=== PATIENT | male | born 1940 | race Caucasian/White ===

== ENCOUNTER 2018-05-11 08:25 | Inpatient (IN) | payer MEDICARE, MEDICAID ==
[2018-05-11] MEDS ORDERED: Dextrose 50% Syringe 50 ML* 25 GM/50 ML SYRINGE IV PUSH ONE (09:08)
[2018-05-11 09:14] LABS: ABS Basophils 0 10^3/ul (0-0.2); ABS Eosinophils 0.1 10^3/ul (0-0.6); ABS Lymphocytes 0.5 10^3/ul (1.0-4.8); ABS Monocytes 0.7 10^3/ul (0-0.8); ABS Neutrophils 9.4 10^3/ul (1.5-7.7); ABS Nucleated RBC 0.1 10^3/ul; Eosinophil % 0.5 % (0-6); Hematocrit 55 % (42-52); Hemoglobin 18.6 g/dl (14.0-18.0); Lymphocyte % 4.9 % (25-47); Mean Corpuscular HGB Conc 34 g/dl (31-36); Mean Corpuscular Hemoglobin 30 pg (27-31); Mean Corpuscular Volume 89 fL (80-94); Mean Platelet Volume 7.2 fL (7.4-10.4); Nucleated Red Blood Cells % 0.7; Platelet Count 165 10^3/ul (150-450); Red Blood Count 6.24 10^6/ul (4.00-5.40); Red Cell Distribution Width 13 % (10.5-15); White Blood Count 10.7 10^3/ul (3.5-10.8)
[2018-05-11] MEDS ORDERED: Labetalol IV* 5 MG/ML 20 ML VIAL IV PUSH ONE (09:19)
[2018-05-11] MEDS ORDERED: Aspirin 81 mg CHEW TAB* 81 MG TAB.CHEW PO ONE (09:22)
--- NOTE | 2018-05-11 09:25 | ED ---
Syncope/Near Syncope - HPI Summary HPI Summary: Patient presents via ambulance with syncope of unknown origin prior to arrival. He reports he went to stand up on the side of his bed and had some lightheadedness - thinks he fell over/"passed out" but doesn't recall any details - unsure if he hit his head. Woke up in his bed. Denies headache, visual change, neck pain or stiffness, chest pain, shortness of breath, cough, abdominal pain, nausea/vomiting/diarrhea, back pain, extremity pain/numbness/ tingling/weakness, urinary sx or back pain. He IDDM - per EMS, records of AM blood glucose is 40-60 - this was low again this morning in 50's - received sugar replacement of some sort prior to arrival - glucose still low at 61. Unable to report if he has felt lightheaded in the past with low blood glucose levels. Patient also has hypertension. Does not recall meds he takes but states he typically takes his meds in the morning and has not taken them today yet. Denies high cholesterol or medication for this as well as thyroid issues. Furthermore he denies history of CVA, [place], arrhythmia. Denies recent illness and feels fine at this time. H/o prostate cancer. Lives w/ sister, Keren, who is on her way - she called ambulance. - History Of Current Complaint Chief Complaint: EDWeakness Time Seen by Provider: 05/11/18 08:46 Hx Obtained From: Patient - Allergies/Home Medications Allergies/Adverse Reactions: Allergies Allergy/AdvReac Type Severity Reaction Status Date / Time citalopram [From Celexa] Allergy Unknown Verified 05/11/18 08:37 Reaction Details Home Medications: Home Medications Basaglar Kwikpen U-100 60 units SUBCUT SEE INSTRUCTIONS 05/11/18 [History Confirmed 05/11/18] Lisinopril 40 mg PO DAILY 05/11/18 [History Confirmed 05/11/18] Solifenacin Succinate [Vesicare] 5 mg PO DAILY 05/11/18 [History Confirmed 05/11] PMH/Surg Hx/FS Hx/Imm Hx Previously Healthy: No - pt reports syncope 4 days ago w/o investigation Endocrine/Hematology History: Reports: Hx Diabetes - IDDM Denies: Hx Anticoagulant Therapy - pt denies Cardiovascular History: Reports: Hx Coronary Artery Disease - likely per Hx, pt denies, Hx Hypercholesterolemia, Hx Hypertension Denies: Hx Atrial Fibrillation, Hx Congestive Heart Failure, Hx Valvular Heart Disease Respiratory History: Denies: Hx Asthma, Hx Chronic Obstructive Pulmonary Disease (COPD), Hx Pulmonary Edema, Hx Pulmonary Embolism GI History: Reports: Other GI Disorders - colitis History: Reports: Other Problems/Disorders - prostate ca Psychiatric History: Reports: Hx Anxiety, Hx Depression - Cancer History Cancer Type, Location and Year: prostate carcinoma - Surgical History Surgery Procedure, Year, and Place: age 22, polyp removed from coccyx Infectious Disease History: No Infectious Disease History: Denies: Traveled Outside the [place] in Last 30 Days - Social History Lives: With Family - Keren ghosh Alcohol Use: None Hx Substance Use: No Substance Use Type: Reports: None Hx Tobacco Use: Yes - denies current smoking Smoking Status (MU): Former Smoker Type: Pipe Amount Used/How Often: 50yr Have You Smoked in the Last Year: Yes Review of Systems Constitutional: Negative Eyes: Negative ENT: Negative Cardiovascular: Negative Respiratory: Negative Gastrointestinal: Negative Genitourinary: Negative Musculoskeletal: Negative Skin: Negative Neurological: Negative Psychological: Normal All Other Systems Reviewed And Are Negative: Yes Physical Exam Triage Information Reviewed: Yes Vital Signs On Initial Exam: Initial Vitals Temp Pulse Resp BP Pulse Ox 97.7 F 92 16 216/124 96 05/11/18 08:26 05/11/18 08:26 05/11/18 08:26 05/11/18 08:26 05/11/18 08:26 Vital Signs Reviewed: Yes Appearance: Positive: No Pain Distress, Obese Skin: Positive: Warm, Skin Color Reflects Adequate Perfusion, Dry - LE's w/ diffuse scaling B/L knees to toes w/ thick toe nails - superficial wounds/skin breakdown of feet B/L Lt > Rt - wet but no significantly active dranainge - NTTP ; dorsal pedal edema; Hands are hyperpigmented w/ what appears to be contusions - no skin breakdown - dorsal edema Head/Face: Positive: Normal Head/Face Inspection Eyes: Positive: Normal, EOMI, ANTHONY - no photophobia, Conjunctiva Clear. Negative: Conjunctiva Inflammed, Discharge ENT: Positive: Normal ENT inspection, Hearing grossly normal, Pharynx normal - mucosa dry, TMs normal, Uvula midline. Negative: Nasal congestion, Nasal drainage, Tonsillar swelling, Tonsillar exudate, Trismus, Muffled voice, Hoarse voice, Sinus tenderness Neck: Positive: Supple, Nontender, No Lymphadenopathy Respiratory/Lung Sounds: Positive: Clear to Auscultation, Breath Sounds Present. Negative: Rales, Rhonchi, Wheezes Cardiovascular: Positive: Pulses are Symmetrical in both Upper and Lower Extremities, Leg Edema Left - dorsal feet B/L; (-) Sahil's B/L, Leg Edema Right , S1, S2 - occasional irregular beat. Negative: Murmur, Rub Abdomen Description: Positive: Nontender, No Organomegaly, Soft Bowel Sounds: Positive: Present Musculoskeletal: Positive: Normal, Strength/ROM Intact Neurological: Positive: Sensory/Motor Intact, Alert, Oriented to Person Place, Time - knows time mostly but not today's date or day - identifies month, year, holiday, president, location; slow to respond (unsure if this is baseline or new onset), CN Intact II-III, Facial Symmetry, Speech Normal. Negative: Pronator Drift Present Psychiatric: Positive: Other - flat, cooperative - [place] Coma Scale Best Eye Response: 4 - Spontaneous Best Motor Response: 6 - Obeys Commands Best Verbal Response: 5 - Oriented Coma Scale Total: 15 Diagnostics - Vital Signs Vital Signs Temp Pulse Resp BP Pulse Ox 05/11/18 09:08 206/113 05/11/18 09:00 96 16 95 05/11/18 08:53 96 05/11/18 08:37 89 4 175/122 95 05/11/18 08:26 97.7 F 92 16 216/124 96 - Laboratory Lab Results: Lab Results 05/11/18 05/11/18 Range/Units 08:47 09:01 WBC 10.7 (3.5-10.8) 10^3/ul RBC 6.24 H (4.00-5.40) 10^6/ul Hgb 18.6 H (14.0-18.0) g/dl Hct 55 H (42-52) % MCV 89 (80-94) fL MCH 30 (27-31) pg MCHC 34 (31-36) g/dl RDW 13 (10.5-15) % Plt Count 165 (150-450) 10^3/ul MPV 7.2 L (7.4-10.4) fL Neut % (Auto) 87.8 H (38-83) % Lymph % (Auto) 4.9 L (25-47) % [place] % (Auto) 6.6 (0-7) % Eos % (Auto) 0.5 (0-6) % Baso % (Auto) 0.2 (0-2) % Absolute Neuts (auto) 9.4 H (1.5-7.7) 10^3/ul Absolute Lymphs (auto) 0.5 L (1.0-4.8) 10^3/ul Absolute Monos (auto) 0.7 (0-0.8) 10^3/ul Absolute Eos (auto) 0.1 (0-0.6) 10^3/ul Absolute Basos (auto) 0 (0-0.2) 10^3/ul Absolute Nucleated RBC 0.1 10^3/ul Nucleated RBC % 0.7 POC Glucose (mg/dL) 61 L (70-100) mg/dL Result Diagrams: 05/11/18 09:01 05/11/18 09:01 Lab Statement: Any lab studies that have been ordered have been reviewed, and results considered in the medical decision making process. Re-Evaluation - Re-Evaluation First Eval Change: Improved - HR and BP improved - mentation same Course/Dx Course Of Treatment: IDDM, HTN 78 y.o. male presents w/ syncope of unknown origin this morning prior to arrival. (SEE HPI for details). ECG: NSR, no ST elevations, but has new RBBB and possibly new Q waves. Discussed w/ Dr. Whitney - in the absence of CP, will avoid nitro but d/t hypertensive urgency will order labetolol 20mg IV and monitor. Will also order ASA pending brain CT. UPDATE: BRAIN CT w/o acute hemorrhage - nurse aware may give ASA. LABS: RBC 6.24, hemaglobin 18.6, hematocrit 55 (Hemachromatosis?, PCV?), MPV 7.2, neutrophils 87.8, lymphs 4.9, absolute neuts 9.4, absolute lymphs are 0.5, d-dimer 346, creatinine 1.33, bun 20, GFR 52, glucose 61 (POC) up to 67 (serum) - will repeat 15 mins after dextrose, mag 1.6, alkaline phosphatase 117. Troponin 0.05 (has been 0.06 in 2016 x 2 - baseline vs. acute) UPDATE: glucose improved - 140's - mentation same. Orthostatic BP's: + 20 point drop w/ change in position and tachycardia - will administer 500mL IV fluids and f/u as needed based on further labs, etc. CXR: No acute findings. With elevated D-dimer, tachycardia, dry appearance, elevated H&H, h/o CA, will r/o PE. Clincally appears dry but also may have CHF as he has DM, HTN and pedal edema. Creat elevated. UPDATE: BNP 458 (no previous for comparison - CHF vs. chronic cardiac damage). UPDATE: Upon sister arriving, she reports pt had syncope 4 days ago as well but they decided not to call for medical help at that time. She is concerned about his sx as this is not normal for him (sx: dizziness, confusion) . Pt's BP and HR improved s/p labetalol. Improved/stable at time of transition of care. - Diagnoses Provider Diagnoses: Syncope, Hypoglycemia, Hypertensive urgency, Elevated troponin, Abnormal ECG Discharge - Sign-Out/Discharge Documenting (check all that apply): Patient Departure - Discharge Plan Condition: Improved Disposition: ADMITTED TO [facility] - Billing Disposition and Condition Condition: IMPROVED Disposition: Admitted to [facility]
[2018-05-11 09:33] LABS: INR 0.97 (0.77-1.02)
[2018-05-11 09:37] LABS: EGFR Non-African American 52.3 (>60)
[2018-05-11] MEDS ORDERED: NS 0.9% 500 ML* 500 ML IV ONE (09:37)
[2018-05-11 09:51] LABS: Urine Appearance Clear; Urine Blood Negative (Negative); Urine Color Yellow; Urine Ketones Negative (Negative); Urine Protein 1+(30 mg/dL) (Negative); Urine Red Blood Cell 1+(3-5/hpf) (Absent); Urine Specific Gravity 1.014 (1.010-1.030); Urine Urobilinogen Negative (Negative); Urine White Blood Cell Absent (Absent)
[2018-05-11] MEDS ORDERED: Iodixanol* (CONTRAST) 320 MG/ML 100 ML SDV IV ONE (10:39)
[2018-05-11] MEDS ORDERED: Dextrose 50% Syringe 50 ML* 25 GM/50 ML SYRINGE IV PUSH PRN (11:21)
[2018-05-11] MEDS ORDERED: Acetaminophen TAB* 325 MG PO PRN (11:21)
[2018-05-11] MEDS ORDERED: hydrALAZINE IV* 20 MG/ML VIAL IV SLOW PU PRN ×2 (11:21→11:46)
[2018-05-11] MEDS ORDERED: Ondansetron INJ* 2 MG/ML VIAL IV PRN (11:21)
[2018-05-11] MEDS ORDERED: NS 0.9% 1000 ML* 1,000 ML IV SCH (11:30)
[2018-05-11] MEDS ORDERED: Magnesium Sulfate 2 GM IV* 2 GM/50 ML BAG IVPB ONE (11:48)
[2018-05-11] MEDS: Insulin LISPRO* 1 UNITS UNIT SUBCUT SCH ×2 (13:55→17:57)
[2018-05-11] MEDS: Heparin VIAL(*) 5000 UNITS/ML VIAL (FIVE THOUSAND) SUBCUT SCH ×2 (14:01→21:21)
[2018-05-11 15:59] LABS: EGFR Non-African American 50.1 (>60)
--- NOTE | 2018-05-11 16:33 | ECHO ---
Patient: BRETT PATRICIO [facility] Rec#: [id number] : 1940 Date: 05/11/2018 Age: 78y Height: 170 cm / 66.9 in Weight: 95 kg / 209.4 lbs Sex: M BSA: 2.06 Room#: ED 18 Admit Date#: 05/11/2018 Type: Inpatient Referring: Merrill Lam NP Reading: Kayla Hernandez MD Brass Plater: Abigail Ivy RDCS,RDMS CC: Swati Hagen MD Transthoracic Echocardiogram Indication: SYNCOPE BP: 162/98 HR: 87 Rhythm: NSR with PVCs Findings History: DM, HTN, HLD Technical Comments: The study quality is fair. Left Ventricle: The left ventricular chamber size is normal. Mild to moderate concentric left ventricular hypertrophy is observed. 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 The estimated ejection fraction is 50-55%. Abnormal left ventricular diastolic filling is observed, consistent with impaired relaxation. Left Atrium: The left atrium is mildly dilated. Right Ventricle: The right ventricular chamber size and systolic function are within normal limits. Right Atrium: The right atrium is mildly dilated. Aortic Valve: The aortic valve is trileaflet. The aortic valve leaflets are mildly thickened. There is no evidence of aortic regurgitation. There is no evidence of aortic stenosis. Mitral Valve: There is mitral annular calcification. The mitral valve leaflets are mildly thickened. There is a trace of mitral regurgitation. There is no evidence of mitral stenosis. Tricuspid Valve: The tricuspid valve leaflets are normal. There is no evidence of tricuspid valve regurgitation. Unable to estimate the right ventricular systolic pressure. Pulmonic Valve: There is no evidence of pulmonic valve thickening. There is no evidence of pulmonic regurgitation. Pericardium: There is no significant pericardial effusion. Aorta: The aortic root appears normal. The ascending aorta is not well visualized. There is no dilatation of the aortic arch. Pulmonary Artery: The main pulmonary artery is not well visualized. Venous: The inferior vena cava appears normal in size. Conclusions Mild to moderate concentric left ventricular hypertrophy is observed. 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 The estimated ejection fraction is 50-55%. Abnormal left ventricular diastolic filling is observed, consistent with impaired relaxation. The right ventricular chamber size and systolic function are within normal limits. The aortic valve leaflets are mildly thickened with normal function. There is a trace of mitral regurgitation. Compared with prior echo report of 10/13/15 EF is stable, prior study did not visualize inferior wall well, akinisis in the inferior posterior region is newly appreciated. Measurements Name Value Normal Range RVIDd (AP) 2D 3 cm (0.9 - 2.6) RAd ISD 4CH 5.1 cm (3.4 - 4.9) IVSd (2D) 1.4 cm (0.6 - 1) LVPWd (2D) 1 cm (0.6 - 1) LVIDd (2D) 5 cm (3.6 - 5.4) LVIDs (2D) 4.1 cm - LV FS (2D) 18 % (25 - 45) Aortic Annulus 2 cm (1.4 - 2.6) Ao root diameter (2D) 3.1 cm (2.1 - 3.5) Aortic arch 3.4 cm (1.8 - 3.4) LA dimension (AP) 2D 4.1 cm (2.3 - 3.8) LAd ISD 4CH 5 cm (2.9 - 5.3) LA ISD 4CH W 4.6 cm (2.5 - 4.5) Name Value Normal Range LA ESV BP (A/L) index 33 ml/m2 - Name Value Normal Range MV E-wave Vmax 0.5 m/sec - MV deceleration time 63 msec - MV A-wave Vmax 1.1 m/sec - MV E:A ratio 0.5 ratio - LV septal e' Vmax 0.03 m/sec - LV lateral e' Vmax 0.05 m/sec - LV E:e' septal ratio 16 ratio - LV E:e' lateral ratio 10 ratio - Name Value Normal Range AV Vmax 1 m/sec - AV VTI 19 cm - AV peak gradient 4 mmHg - AV mean gradient 2 mmHg - LVOT diameter 2 cm - LVOT Vmax 0.6 m/sec - LVOT VTI 10 cm - LVOT peak gradient 1 mmHg - LVOT mean gradient 0.4 mmHg - ANAHI (continuity Vmax) 1.9 cm2 - ANAHI (continuity VTI) 1.6 cm2 - NETO Vmax 0.5 m/sec - Name Value Normal Range MV Vmax 1.2 m/sec - MV VTI 24 cm - MV peak gradient 6 mmHg - MV mean gradient 3 mmHg - MV PHT 47 msec - MVA (PHT) 4.7 cm2 - MVA (continuity VTI) 1.3 cm2 - Name Value Normal Range PV Vmax 0.6 m/sec - PV peak gradient 1 mmHg -
[2018-05-11] MEDS: Ammonium Lactate 12% 1 APPLIC TUBE TOPICAL SCH ×2 (17:57→21:25)
[2018-05-11] MEDS: buPROPion SR TAB.SR* 100 MG PO SCH (21:19)
[2018-05-11] MEDS: Docusate CAP* 100 MG PO SCH (21:19)
[2018-05-11] MEDS: Senna TAB PO PRN (21:19)
[2018-05-12] MEDS: Heparin VIAL(*) 5000 UNITS/ML VIAL (FIVE THOUSAND) SUBCUT SCH ×3 (05:30→22:23)
[2018-05-12 06:15] LABS: EGFR Non-African American 53.7 (>60)
--- NOTE | 2018-05-12 08:36 | HP ---
CC: Dr. Swati Vargas; Dr. Adkins* HISTORY AND PHYSICAL: DATE OF ADMISSION: 05/11/18 PRIMARY CARE PROVIDER: Dr. Swati Vargas. ATTENDING PHYSICIAN WHILE IN THE HOSPITAL: Dr. Kathi Navarro* (report dictated by Merrill Lam NP). CHIEF COMPLAINT: Syncope. HISTORY OF PRESENT ILLNESS: Mr. Sanchez is a 78-year-old male patient, who carries a history of diabetes, in addition to this also carries a history of hypertension, hyperlipidemia, CAD. He had a history of a low EF and irregular stress test in 2011. His last documented EF 2 years ago was preserved at 50% to 55%. He has a history of prostate cancer. He is coming into the ER today. He has had 2 episodes of having when he first gets up in the morning where he has been fainting. He also noted that in the morning that his sugars have been running low and sometimes into the 60s. When discussing with him what happened today in this episode, he says that last thing he remembers that he was trying to get up to go get ready for the day and go to the bathroom, again the sister who lives with him said that he had gotten up once already earlier in the morning, but then around 6:30 to 7 o'clock this morning he got up again and she was able to see that he was trying to stand up trying to get out of bed and then he rolled out of bed and he had fainted. There were no reports of incontinence or shaking or myoclonic type movements. There were no reports of chest pain prior to or after the event. When the patient had come to, the sister says he was not out very long, he was delirious, he was upset that he had fallen, but when asking the patient, he says that he recognized the sister and he knew that he was in his bedroom and he says he does not think he was out very long. They did note that his sugar was low this morning. There was concern because of the episode and that he had a similar episode about a week prior, again with no prodrome type symptoms, blood glucose when EMS arrived was 51. There have been no recent changes in his medications and the sister says that he has excellent appetite. She was concerned because he had fallen again and had called 911. When he came here, his blood pressure was significantly elevated. It was in the 200 systolic over 120 range. He was given beta-belkis , labetalol and his blood pressure did come down to range in the 160s. He denied any again chest pain, shortness of breath. There has been no recent vomiting, diarrhea. No fevers, no chills. He came into the ED, was evaluated. There was concern because of the syncope and we were asked to evaluate for admission. PAST MEDICAL HISTORY: Significant for: 1. Diabetes. 2. Hypertension. 3. Hyperlipidemia. 4. Question of CAD. He did have an irregular stress test 6 years ago when he had a heart cath. 5. Questionable history of cardiomyopathy. He had a low EF based on stress test 6 years ago, but most recent EF 2 years ago was 50% to 55%. 6. He has had a history of prostate cancer. PAST SURGICAL HISTORY: He denied. HOME MEDICATIONS: Include: 1. Lantus. He is actually taking 20 units at bedtime, 60 units in the morning. 2. Bupropion 100 mg p.o. b.i.d. 3. VESIcare 5 mg a day. 4. Toprol-XL 50 mg daily. 5. Lisinopril 40 mg daily. ALLERGIES TO MEDICATIONS: Include CELEXA. FAMILY HISTORY: Mother at the age of 98 of old age. Father had an UT in his 60s. SOCIAL HISTORY: He rarely drinks alcohol. He used to smoke a pipe on a daily basis, but he no longer smokes. Surrogate decision maker is his sister, Keren. REVIEW OF SYSTEMS: There is no documented fever. He denied having any significant weight change. There is no double vision. He denies having any ear discharge. There was no rhinorrhea. There is no sore throat. No thyroid enlargement. Denies having any chest pain. There was no orthopnea. There was no nocturnal dyspnea. He denies having any abdominal pain. No vomiting. No dysuria, no frequency. No seizure. There was a loss of conscious. Review of 14 systems was completed, all others negative. PHYSICAL EXAMINATION GENERAL: At this time, Mr. Sanchez is a 78-year-old male patient. He is sitting in the ED stretcher. He does not appear to be in any acute distress. He appears to be well nourished and well developed. VITAL SIGNS: Blood pressure now was 162/98 with a pulse of 107, respirations were 20, his O2 saturation 96% on room air, temperature 97.7. When he presented , blood pressure was 216/124. HEENT: Head: Atraumatic and normocephalic. Eyes: EOMs are intact. Sclerae anicteric and not pale. Throat: Oral mucosa appears to be dry. No oropharyngeal erythema. NECK: Supple. LUNGS: Clear to auscultation bilaterally. There were no wheezes, rales, or rhonchi. HEART: Sounds S1, S2. He had a regular rate and rhythm. There were no murmurs , rubs, or gallops. ABDOMEN: Soft. It was flat. It was nontender. Bowel sounds were present. EXTREMITIES: He does have abrasions noted to the left knee and left heel. He has scaling of the skin bilaterally. He has got 2+ pedal edema. He had 5/5 strength. Pulses were 2+. NEUROLOGIC: He is awake. He is alert. He is oriented x3. His tongue is midline. Physical Therapy Manager were equal. He had no gross focal deficits. SKIN: Again grossly intact with exception he has abrasions noted particularly to the left lower extremity to the knee and to the pretibial area. DIAGNOSTIC STUDIES/LAB DATA: WBC of 10.7, RBC of 6.24, hemoglobin of 18.6, hematocrit of 55, platelet count of 165. INR of 0.97, PTT of 32.6, D-dimer 346. His sodium was 140; potassium 3.6; chloride of 108; bicarb 23; BUN 20; creatinine of 1.33, which is right near his baseline; glucose 67, now it is 142 ; lactic 1.0; calcium 9.2. His mag was 1.6. The total bili 0.7, AST 20, ALT 14 , alk phos 117. Troponin 0.05, which is right near his baseline. BNP of 458. TSH was normal. Urine showed 1+ protein, 1+ rbc's, 2+ glucose. Toxicology negative. He had a brain CT obtained today, which showed central and cortical atrophy. No intracranial mass or hemorrhage was noted. He had an EKG obtained today, which does show a new right bundle branch block, J - point elevation was noted. He had some ST depression in V2. Previous EKGs, he does have a left bundle branch block. The right bundle branch block is now new. He had a chest x-ray obtained today, which showed no active cardiopulmonary disease. Old medical records were reviewed. Again, last EF 50% to 55%. ASSESSMENT AND PLAN: Mr. Sanchez is a 78-year-old male patient coming into the ED today with a syncopal episode. We were asked to evaluate for admission. He will be admitted under observation status for: 1. Syncope. Etiology is unclear. I do note that with acute position change his blood pressure does drop about 20 points and his heart rate does come up. He could be slightly orthostatic, although his blood pressure is quite high. My plan is to certainly repeat the orthostatics upstairs as he did get fluids down here in the ER. I will go ahead and get a CTA of the chest that is pending given the elevated troponin and D-dimer. We will place him on telemetry. We will check an echo and we will continue to follow. Question if he did have possibly a seizure related to hypoglycemia or if the hypoglycemia contributed to the syncope. So, at this point, I have cut back on the patient' s p.m. Lantus, I have discontinued it for the time being. 2. Diabetes. Again, he has had low sugars recently, so we have cut the 20 units of Lantus at night. We will just keep him on 60 while he is here and we will follow. 3. Hypertension. Again, when he came in, he was not well controlled, but he may have not taken his blood pressure meds this morning. We will need to monitor this. We may need to consider adding an agent at night, but his blood pressure is now better in range at 160s/70s. 4. Hyperlipidemia. Continue statin therapy. 5. Question of coronary artery disease. I am going to get an echo to see if the EF is still preserved. He will need to follow up with Cardiology, possibly a stress test at some point. We will cycle his troponins and we will continue to follow. 6. Question of cardiomyopathy. Again, last EF was preserved. Again, he will need followup with possible Cardiology. 7. Elevated H and H. I am concerned for polycythemia. I have asked Dr. Adkins to evaluate. 8. History of prostate cancer. Follow up with PCP and Dr. Mosley. 9. Code status: Full code. 10. Fluids, electrolytes, and nutrition: He can have a consistent carb diet. TIME SPENT: Time spent on the admission was 60 minutes, greater than half the time was spent [id number] with the patient obtaining my history and physical, other half of the time was spent going over the plan of care with the patient and implementing plan of care. I did discuss the plan of care with my attending, Dr. Navarro; she is in agreement. MERRILL LAM, ROLAND [id number]/CPS #: [id number] LINDA
[2018-05-12] MEDS: CMC:Solifenacin(NF) 5 MG TAB PO SCH (08:48)
[2018-05-12] MEDS: Docusate CAP* 100 MG PO SCH ×2 (08:48→22:21)
[2018-05-12] MEDS: buPROPion SR TAB.SR* 100 MG PO SCH ×2 (08:48→22:21)
[2018-05-12] MEDS: Lisinopril TAB* 10 MG PO SCH (08:48)
[2018-05-12] MEDS: Aspirin EC TAB* 81 MG TAB.EC PO SCH (08:48)
[2018-05-12] MEDS: Metoprolol Succinate XL TAB* 50 MG PO SCH (08:48)
[2018-05-12] MEDS: Insulin LISPRO* 1 UNITS UNIT SUBCUT SCH ×3 (08:49→16:59)
[2018-05-12] MEDS ORDERED: Insulin GLARGINE(*) 1 UNITS UNIT SUBCUT SCH (09:00)
[2018-05-12] MEDS: Ammonium Lactate 12% 1 APPLIC TUBE TOPICAL SCH ×2 (10:25→22:24)
--- NOTE | 2018-05-12 11:41 | PN ---
Subjective Date of Service: 05/12/18 Interval History: Mr. Sanchez denies complaint and reports feeling well today. He is aware of the plan for pacemaker tomorrow and has no questions or concerns. He denies chest pain, SOB, nausea, or abdominal pain. He has been up ambulating in his room without lightheadedness or dizziness. Objective Active Medications: Acetaminophen (Tylenol Tab*) 650 mg PO Q4H PRN Ammonium Lactate (Lac-Hydrin 12 %) 1 applic TOPICAL BID [facility] Aspirin (Aspirin Ec Tab*) 81 mg PO DAILY [facility] Bupropion HCl (Wellbutrin Sr Tab*) 100 mg PO BID [facility] Dextrose (D50w Syringe 50 Ml*) 12.5 gm IV PUSH .FOR FS < 60 - SS PRN Docusate Sodium (Colace Cap*) 100 mg PO BID [facility] Heparin Sodium (Porcine) (Heparin Vial(*)) 5,000 units SUBCUT Q8HR [facility] Hydralazine HCl (Apresoline Iv*) 5 mg IV SLOW PU Q6H PRN Sodium Chloride (Ns 0.9% 1000 Ml*) 1,000 mls @ 100 mls/hr IV PER RATE [facility] Insulin Glargine (Lantus(*)) 60 units SUBCUT DAILY [facility] Insulin Human Lispro (Humalog*) 0 units SUBCUT AC [facility]; Protocol Lisinopril (Prinivil Tab*) 40 mg PO DAILY [facility] Metoprolol Succinate (Toprol Xl Tab*) 50 mg PO DAILY [facility] Ondansetron HCl (Zofran Inj*) 4 mg IV Q6H PRN Senna (Senokot Tab*) 2 tab PO BEDTIME PRN Solifenacin (Vesicare(Nf)) 5 mg PO DAILY [facility] Vital Signs: Temp Pulse Resp BP Pulse Ox 98.7 F 79 18 152/84 97 05/12/18 07:48 05/12/18 07:48 05/12/18 07:48 05/12/18 07:48 05/12/18 07:48 Oxygen Devices in Use Now: None Appearance: Male lying in bed in NAD Eyes: No Scleral Icterus Ears/Nose/Mouth/Throat: Mucous Membranes Moist Neck: Trachea Midline Respiratory: Symmetrical Chest Expansion and Respiratory Effort, Clear to Auscultation Cardiovascular: NL Sounds; No Murmurs; No JVD, No Edema Abdominal: NL Sounds; No Tenderness; No Distention Extremities: No Edema Skin: No Rash or Ulcers Neurological: Alert and Oriented x 3, NL Muscle Strength and Tone Nutrition: Taking PO's Result Diagrams: 05/11/18 09:01 05/12/18 05:29 Additional Lab and Data: . Assess/Plan/Problems-Billing Assessment: Mr. Sanchez is a 78 yo male with a PMH of questionable CAD and cardiomyopathy, DM, HTN who was admitted on 05/11/18 with syncope on getting out of bed and relative hypoglycemia. - Patient Problems (1) Syncope Comment: - Mildly orthostatic in the ED, resolved with IV fluids. - Ddimer elevated but CTA chest negative. - Question if related to low BG - Appreciate consultation from cardiology, concern for EKG with flip from left to right bundle branch block and elevated troponins. Echo shows a new akinesis in the inferior posterior region. Plan for pacemaker and then later follow up with stress test. - Question if hypoglycemia contributed to his symptoms (2) CAD (coronary artery disease) Comment: - Dr. Hernandez had been concerned about CAD and recommended cardiac cath some time ago, patient did not follow up - Echo confirms a previous CA. - Continue aspirin, lisinopril, and metoprolol. - Will need ischemic work up when recovered from pacemaker placement (3) Elevated hemoglobin Comment: - Appreciate consult from Dr. Adkins who ordered erythropoietin and Jak2 mutation (4) HTN (hypertension) Comment: - SBP 150s. - Continue metoprolol and lisinopril. (5) Hyperlipidemia Comment: - Resume lovastatin at home. (6) Type II diabetes mellitus Comment: - BG 120s - Continue AM lantus, PM long acting insulin held due concern for hypoglycemia causing syncope/seizure (7) Depression Comment: - Continue bupropion. (8) DVT prophylaxis Comment: - SQ heparin (9) Full code status Comment: Status and Disposition: OBV. Anticipate discharge to home when medically stable.
--- NOTE | 2018-05-12 13:43 | PN ---
Subjective Date of Service: 05/12/18 - CC: syncope Interval History: The patient walked to bathroom, not dizzy this AM, no fall or syncope. Medications Active Medications: Acetaminophen (Tylenol Tab*) 650 mg PO Q4H PRN PRN Reason: FEVER/PAIN Ammonium Lactate (Lac-Hydrin 12 %) 1 applic TOPICAL BID [facility] Last Admin: 05/12/18 10:25 Dose: 1 applic Aspirin (Aspirin Ec Tab*) 81 mg PO DAILY [facility] Last Admin: 05/12/18 08:48 Dose: 81 mg Bupropion HCl (Wellbutrin Sr Tab*) 100 mg PO BID [facility] Last Admin: 05/12/18 08:48 Dose: 100 mg Dextrose (D50w Syringe 50 Ml*) 12.5 gm IV PUSH .FOR FS < 60 - SS PRN PRN Reason: FS < 60 Docusate Sodium (Colace Cap*) 100 mg PO BID [facility] Last Admin: 05/12/18 08:48 Dose: 100 mg Heparin Sodium (Porcine) (Heparin Vial(*)) 5,000 units SUBCUT Q8HR [facility] Last Admin: 05/12/18 05:30 Dose: 5,000 units Hydralazine HCl (Apresoline Iv*) 5 mg IV SLOW PU Q6H PRN PRN Reason: BLOOD PRESSURE Sodium Chloride (Ns 0.9% 1000 Ml*) 1,000 mls @ 100 mls/hr IV PER RATE [facility] Last Admin: 05/11/18 13:55 Dose: 100 mls/hr Cefazolin Sodium/Dextrose (Kefzol 2 Gm Premix In Ors(*)) 2 gm in 50 mls @ 100 mls/hr IVPB ONCE ONE Stop: 05/13/18 08:29 Sodium Chloride (Ns 0.9% 1000 Ml*) 1,000 mls @ 75 mls/hr IV PER RATE [facility] Insulin Glargine (Lantus(*)) 60 units SUBCUT DAILY [facility] Last Admin: 05/12/18 08:48 Dose: 60 units Insulin Human Lispro (Humalog*) 0 units SUBCUT AC [facility]; Protocol Last Admin: 05/12/18 12:31 Dose: 3 units Lisinopril (Prinivil Tab*) 40 mg PO DAILY [facility] Last Admin: 05/12/18 08:48 Dose: 40 mg Metoprolol Succinate (Toprol Xl Tab*) 50 mg PO DAILY [facility] Last Admin: 05/12/18 08:48 Dose: 50 mg Ondansetron HCl (Zofran Inj*) 4 mg IV Q6H PRN PRN Reason: NAUSEA Senna (Senokot Tab*) 2 tab PO BEDTIME PRN PRN Reason: CONSTIPATION Last Admin: 05/11/18 21:19 Dose: 2 tab Solifenacin (Vesicare(Nf)) 5 mg PO DAILY [facility] Last Admin: 05/12/18 08:48 Dose: 5 mg Objective Vital Signs: Temp Pulse Resp BP Pulse Ox 98.3 F 79 18 174/90 100 05/12/18 11:55 05/12/18 12:37 05/12/18 11:55 05/12/18 12:37 05/12/18 11:55 Oxygen Devices in Use Now: None Appearance: older male, seated on edge of the bed, no distance Eyes: No Scleral Icterus, PERRLA Ears/Nose/Mouth/Throat: Mucous Membranes Moist Neck: NL Appearance and Movements; NL JVP, No Thyroid Enlargement, Masses Respiratory: Symmetrical Chest Expansion and Respiratory Effort, Clear to Auscultation Cardiovascular: NL Sounds; No Murmurs; No JVD, RRR Abdominal: NL Sounds; No Tenderness; No Distention Extremities: No Clubbing, Cyanosis Skin: - - dressing on legs, hyperemic, edema, not examined under dressing. Neurological: - - answers questions, follows commands. Lines/Tubes/Other Access: Clean, Dry and Intact Peripheral IV Laboratory Results: 05/11/18 09:01 05/12/18 05:29 INR (Anticoag Therapy) 0.97 (0.77-1.02) 05/11/18 09:01 APTT 32.3 seconds (26.0-36.3) 05/11/18 09:01 Total Bilirubin 0.70 mg/dL (0.2-1.0) 05/11/18 09:01 AST 20 U/L (13-39) 05/11/18 09:01 ALT 14 U/L (7-52) 05/11/18 09:01 Alkaline Phosphatase 117 U/L (34-104) H 05/11/18 09:01 B-Natriuretic Peptide 458 pg/mL (<=100) H 05/11/18 08:51 Total Protein 6.7 g/dL (6.4-8.9) 05/11/18 09:01 Albumin 4.1 g/dL (3.2-5.2) 05/11/18 09:01 Globulin 2.6 g/dL (2-4) 05/11/18 09:01 Albumin/Globulin Ratio 1.6 (1-3) 05/11/18 09:01 Triglycerides 96 mg/dL 05/12/18 05:29 Cholesterol 148 mg/dL 05/12/18 05:29 LDL Cholesterol 90 mg/dL 05/12/18 05:29 HDL Cholesterol 39.1 mg/dL 05/12/18 05:29 TSH 2.48 mcIU/mL (0.34-5.60) 05/11/18 09:01 05/11/18 05/11/18 05/11/18 09:01 15:17 16:49 Troponin I 0.05 H* 0.10 H* 0.10 H* 05/11/18 05/12/18 19:50 00:48 Troponin I 0.08 H* 0.10 H* Diagnostic Imaging: Echo 05/11/18 inferior posterior scar at the base, EF 50% EKG Data: RBBB alternates LBBB on ECG's over time. Monitor: NSR, frequent PVC's, rare V bigeminy. Assessment/Plan 78 yo male admitted with 2 recent syncopal events getting up in AM. PMHx DM T2, HTN, Chol, obese, RBBB and LBBB. Syncope: Presentation c/w orthostasis and this noted on BP's in ED. Improved with hydration in house. Constipation could contribute, prevent in future if able. Alternating LBBB and RBBB puts pt at risk for asystole, indication for a pacer, scheduled in AM Low glucose could contribute as well, adjustments in insulin noted. CAD: Old MT on echo and ECG. Recommmend statin, Lipator 40 or rosuvastatin 20 mg. Continue metroprolol. With elevated troponins I feel he needs an updated ischemic evaluation, but difficult now, won't hit target w/BB, risk complete heart block and no escape with lexiscan due to alternating L+R bundle blocks. Will stress after pacer. Full dictation of consult done yesterday is not yet available.
[2018-05-12] MEDS ORDERED: Bisacodyl SUPP* 10 MG SUPP PR PRN (17:09)
[2018-05-12] MEDS ORDERED: Polyethylene Glycol 3350* 17 GM PACKET PO PRN (17:09)
[2018-05-12] MEDS: Senna TAB PO PRN (22:21)
[2018-05-13] MEDS: NS 0.9% 1000 ML* 1,000 ML IV SCH ×2 (06:00→20:42)
[2018-05-13] MEDS: Heparin VIAL(*) 5000 UNITS/ML VIAL (FIVE THOUSAND) SUBCUT SCH ×3 (06:14→20:42)
[2018-05-13] MEDS: Insulin LISPRO* 1 UNITS UNIT SUBCUT SCH ×3 (07:41→17:01)
[2018-05-13] MEDS ORDERED: ceFAZolin 2 GM PREMIX in ORs 2 GM/50 ML BAG IVPB ONE (08:00)
[2018-05-13] MEDS ORDERED: Insulin GLARGINE(*) 1 UNITS UNIT SUBCUT ONE (08:18)
--- NOTE | 2018-05-13 08:42 | PN ---
Subjective Date of Service: 05/13/18 Interval History: Mr. Sanchez reports feeling woozy and hungry after his pacemaker today but denies other complaint. He specifically denies chest pain, SOB, nausea, or abdominal pain. Objective Active Medications: Acetaminophen (Tylenol Tab*) 650 mg PO Q4H PRN Ammonium Lactate (Lac-Hydrin 12 %) 1 applic TOPICAL BID [facility] Aspirin (Aspirin Ec Tab*) 81 mg PO DAILY [facility] Bisacodyl (Dulcolax Supp*) 10 mg MD DAILY PRN Bupropion HCl (Wellbutrin Sr Tab*) 100 mg PO BID [facility] Dextrose (D50w Syringe 50 Ml*) 12.5 gm IV PUSH .FOR FS < 60 - SS PRN Docusate Sodium (Colace Cap*) 100 mg PO BID [facility] Heparin Sodium (Porcine) (Heparin Vial(*)) 5,000 units SUBCUT Q8HR [facility] Hydralazine HCl (Apresoline Iv*) 5 mg IV SLOW PU Q6H PRN Sodium Chloride (Ns 0.9% 1000 Ml*) 1,000 mls @ 100 mls/hr IV PER RATE [facility] Sodium Chloride (Ns 0.9% 1000 Ml*) 1,000 mls @ 75 mls/hr IV PER RATE [facility] Magnesium Sulfate/Dextrose (Magnesium Sulfate 1 Gm Iv*) 1 gm in 100 mls @ 200 mls/hr IV ONCE ONE Insulin Human Lispro (Humalog*) 0 units SUBCUT AC [facility]; Protocol Lisinopril (Prinivil Tab*) 40 mg PO DAILY [facility] Metoprolol Succinate (Toprol Xl Tab*) 50 mg PO DAILY [facility] Ondansetron HCl (Zofran Inj*) 4 mg IV Q6H PRN Polyethylene Glycol/Electrolytes (Miralax*) 17 gm PO DAILY [facility] Senna (Senokot Tab*) 2 tab PO BEDTIME PRN Solifenacin (Vesicare(Nf)) 5 mg PO DAILY [facility] Vital Signs: Temp Pulse Resp BP Pulse Ox 97.8 F 69 18 170/84 99 05/13/18 07:24 05/13/18 07:24 05/13/18 07:24 05/13/18 07:24 05/13/18 07:24 Oxygen Devices in Use Now: None Appearance: Male lying in bed in [facility], sister at bedside Eyes: No Scleral Icterus Ears/Nose/Mouth/Throat: Mucous Membranes Moist Neck: Trachea Midline Respiratory: Symmetrical Chest Expansion and Respiratory Effort, Clear to Auscultation Cardiovascular: NL Sounds; No Murmurs; No JVD, No Edema Abdominal: NL Sounds; No Tenderness; No Distention Extremities: No Edema Skin: No Rash or Ulcers Neurological: Alert and Oriented x 3, NL Muscle Strength and Tone Nutrition: Taking PO's Result Diagrams: 05/11/18 09:01 05/12/18 05:29 Additional Lab and Data: . Assess/Plan/Problems-Billing Assessment: Mr. Sanchez is a 78 yo male with a PMH of questionable CAD and cardiomyopathy, DM, HTN who was admitted on 05/11/18 with syncope on getting out of bed and relative hypoglycemia. - Patient Problems (1) Syncope Comment: - Mildly orthostatic in the ED, resolved with IV fluids. - Ddimer elevated but CTA chest negative. - Question if related to AM hypoglycemia - Appreciate consultation from cardiology, concern for EKG with flip from left to right bundle branch block and elevated troponins. Echo shows a new akinesis in the inferior posterior region. Pacemaker placed today and then later follow up with stress test. (2) CAD (coronary artery disease) Comment: - Dr. Hernandez had been concerned about CAD and recommended cardiac cath some time ago, patient did not follow up - Echo confirms a previous NH. - Continue aspirin, lisinopril, atorvastatin and metoprolol. - Will need ischemic work up when recovered from pacemaker placement (3) Elevated hemoglobin Comment: - Appreciate consult from Dr. Adkins who ordered erythropoietin and Jak2 mutation (4) HTN (hypertension) Comment: - SBP 150s. - Continue metoprolol and lisinopril. (5) Hyperlipidemia Comment: - Resume lovastatin at home. (6) Type II diabetes mellitus Comment: - BG 120s - Continue AM lantus, PM long acting insulin held due concern for hypoglycemia causing syncope/seizure (7) Depression Comment: - Continue bupropion. (8) DVT prophylaxis Comment: - SQ heparin (9) Full code status Comment: Status and Disposition: OBV. Anticipate discharge to home when medically stable.
[2018-05-13] MEDS ORDERED: Magnesium Sulfate 1 GM IV* 1 GM/100 ML BAG IV ONE (09:00)
[2018-05-13] MEDS: Lisinopril TAB* 10 MG PO SCH (09:07)
[2018-05-13] MEDS: Aspirin EC TAB* 81 MG TAB.EC PO SCH (09:09)
[2018-05-13] MEDS: Metoprolol Succinate XL TAB* 50 MG PO SCH (09:09)
[2018-05-13] MEDS: buPROPion SR TAB.SR* 100 MG PO SCH ×2 (09:10→20:41)
[2018-05-13] MEDS: Docusate CAP* 100 MG PO SCH ×2 (09:10→20:41)
[2018-05-13] MEDS: CMC:Solifenacin(NF) 5 MG TAB PO SCH (09:10)
--- NOTE | 2018-05-13 10:03 | CONS ---
CC: Swati Vargas MD; Dr. Hernandez; Hospitalist* CARDIOLOGY CONSULTATION NOTE: DATE OF CONSULT: 05/11/18 REASON FOR CONSULTATION: Syncope. HISTORY OF PRESENT ILLNESS: Mr. Sanchez was seen in the presence of his sister. He is a 78-year-old gentleman who underwent evaluation with Dr. Hernandez in 2011 for arm pain and cardiomyopathy. The patient presented to the hospital on 05/11/18 due to syncopal episodes. The patient is a vague historian and his sister who was with him assisted in the history. He got up this morning, was a bit dizzy, but kept walking through their house as he had to go to the bathroom and ended up on the floor. His sister said he had a similar episode happen about a week ago. She thinks it could be related to hypoglycemia as they have been as low as 60 in the mornings. The patient denied any recent chest pain, pressure, heaviness, orthopnea, or PND. He denies any awareness of palpitations or racing of the heart. Review of systems was significant in that he has recently been constipated. PAST MEDICAL HISTORY: 1. Type 2 diabetes. 2. Hypertension. 3. Hyperlipidemia. 4. Probable coronary artery disease (abnormal stress test with reversible ischemia, 2011. No cath done. Now, fixed defect on echo at the base of the inferior posterior wall). 5. History of cardiomyopathy, 2012. 6. Prostate cancer. 7. Conduction disease (history of left bundle-branch block, history of right bundle-branch block). 8. Dyslipidemia. MEDICATIONS: Current inpatient medications include: 1. Tylenol p.r.n. 2. Lac-Hydrin b.i.d. 3. Wellbutrin 100 mg b.i.d. 4. Colace 100 mg b.i.d. 5. Subcutaneous heparin. 6. Hydralazine p.r.n. 7. Glargine insulin 60 units daily. 8. Lispro insulin p.r.n. 9. Prinivil 40 mg a day. 10. Zofran p.r.n. 11. Senokot p.r.n. 12. VESIcare. 13. Toprol-XL 50 mg a day. ALLERGIES: CELEXA. FAMILY HISTORY: Positive for early atherosclerotic heart disease on his father' s side. His father had a myocardial infarction in his 60s and multiple paternal relatives had early atherosclerotic heart disease. His mother at age 98. His sister has coronary artery disease with multiple stents. SOCIAL HISTORY: The patient is a retired mays. He used to smoke a pipe. No significant alcohol intake. Lives with his sister who does all his care for him. REVIEW OF SYSTEMS: A 15-point review of systems as above. No history of orthopnea, PND. No recent fevers, chills, sweats. No coughing. He does have constipation currently. Low sugars noted by his sister as above. No increase in his leg swelling recently. No chest pain, pressure, heaviness. All other 14 -point review of systems was negative. PHYSICAL EXAMINATION: The patient is 5 feet 7 inches, weighs 194 pounds with a BMI of 30. Vital signs on arrival to the emergency room: Blood pressure 216/ 124 with a pulse of 92, oxygen saturation 96% and he was afebrile. At the time of consultation, the patient's blood pressure was 157/74 to 180/84, pulse was 70 to 80 and regular, T-max 99.2, respiratory rate 16, oxygen saturation 96% on room air. Orthostatic blood pressure in the ED, lying blood pressure 181/89 with a pulse of 99, sitting blood pressure 163/94 with a pulse of 101 and standing blood pressure 162/90 with a pulse of 107. General Appearance: Very overweight older gentleman seated in his bed, somewhat blank stare, but appears comfortable. Psychologically, pleasant and cooperative, does not talk much, but appropriate when he answers but a little vague. Skin: Warm, dry. There are dressings on the lower extremities and those were not examined, but evidence consistent with chronic venous stasis and some hyperemia as well. Unkempt in appearance. Nails are long. Smell is consistent with no recent showering. HEENT: Pupils are equal and round. Mucous membranes are moist. Neck: Without increased JVP appreciated. No lymphadenopathy or thyromegaly palpable. Carotid pulses free of bruits. Breath sounds distant, but clear with good effort. No wheezes, rales, or rhonchi. Coronary: S1, S2 regular without murmurs or rubs. Abdomen: Quite overweight, active bowel sounds, soft and nontender. Lower extremities again have dressings on. Evidence of some edema and hyperemia, but dressings not removed. LABORATORY DATA/DIAGNOSTIC STUDIES: White count 10.7, hemoglobin 8.6, hematocrit 55, platelets 165,000 (chronic polycythemia). INR 0.97. D-dimer mildly elevated at 346. Sodium 140, potassium 3.6, chloride 108, bicarb 23, BUN 20, creatinine 1.33, glucose 67 and 61 on arrival to the emergency room. Magnesium 1.6. ALT 14, AST 20. Troponin #1, 0.05; #2, 0.10; #3, 0.10; #4, 0.08; #5, 0.10. BNP of 458. Urinalysis: 1+ protein, 0 white cells, positive red cells, 2+ glucose, pH of 6 , ketones negative, nitrite and esterase negative. Toxicology: 0 alcohol, no recreational drugs detected. Brain CT showed some mild cortical atrophy, no acute problems. Chest x-ray: No acute cardiopulmonary disease. CT angiogram was negative for pulmonary embolus, borderline enlarged lymph node in the anterior mediastinum, cholelithiasis, and diverticulum second stage noted. Echocardiogram showed an area of akinesis at the base of the inferior posterior wall, mild to moderate left ventricular hypertrophy, and ejection fraction 50% with abnormal diastolic filling, normal right ventricular systolic function, aortic valve sclerosis, trace mitral insufficiency. EKG on admission showed normal sinus rhythm with a right bundle-branch block and first-degree A-V block, and QS complexes in the inferior leads consistent with an old inferior wall MA. A 12-lead ECG from 10/13/15 shows normal sinus rhythm with a left bundle-branch block and Q's in the inferior leads. IMPRESSION AND PLAN: In summary, Mr. Sanchez is a 78-year-old gentleman admitted with a second episode of loss of consciousness getting out of bed. It sounds like orthostatic-induced hypotension and he does have a 19-point drop in his systolic blood pressure going from lying to standing. The differential for his syncope would include orthostatic hypotension, hypoglycemia, but he is also alternating left and right bundles, which could put him at risk for asystole due to infra-Hisian block. I do not think the beta - belkis is contributing to this and so, I do not feel stopping this would alter these findings. I recommended that he undergo pacemaker implantation as the patient is at risk for alternating left and right bundles that would put him at risk for bradycardic- induced syncope. I did explain to the patient and his sister that as his symptoms were orthostatic that the current presentation may well be a different etiology. Because both of them happen getting out of bed, I am most concerned about orthostatic drops in his blood pressure and I think he is going to need to go from lying to sitting and wait and sitting to standing and waiting prior to getting up first thing in the morning. Other options would be to have a commode or a urinal at the bedside to avoid any urgency. Increased vagal tone from constipation could be contributing and I would encourage any optimization to prevent recurrence of this. It sounds like it is a chronic recurrent problem. For the patient's coronary artery disease, I think between 2011 and now he has completed a myocardial infarction right coronary artery. Options going forward, because of the elevated troponins I prefer would be a stress test. I am not sure he can ambulate with his diabetic neuropathy and leg ulcerations and I do not think he would hit target on his beta-belkis, so a chemical stress test would be recommended. His uncontrolled hypertension is noted and has improved. I think we can continue metoprolol and lisinopril avoiding dehydration and diuretics because of above issues. Diabetes with recent documented hypoglycemia. Adjustments in insulin per hospitalist noted and he will need to follow up with primary care. Renal insufficiency is noted and is chronic. Mild polycythemia noted. This also appears chronic. I do not think it is contributing to the above presentation, but may want to be followed up on as an outpatient. Additional recommendations will be made pending his clinical course in response to the above treatment. [id number]/[facility] #: [id number] [facility]
[2018-05-13] MEDS ORDERED: Lidocaine 1% INJ* 10 MG/ML 30 ML SDV ONE (12:42)
[2018-05-13] MEDS ORDERED: Iohexol 300* (CONTRAST) 10 ML SDV ONE ×2 (12:43→14:06)
[2018-05-13] MEDS ORDERED: fentaNYL* 50 MCG/ML 2 ML VIAL (100 MCG VIAL) ONE (12:47)
[2018-05-13] MEDS ORDERED: Naloxone* 0.4 MG/ML 1 ML VIAL ONE (12:47)
[2018-05-13] MEDS ORDERED: Flumazenil* 0.1 MG/ML 5 ML MDV ONE (12:47)
[2018-05-13] MEDS ORDERED: Midazolam* 1 MG/ML 10 ML VIAL (10 MG) ONE (12:47)
--- NOTE | 2018-05-13 15:25 | PN ---
Subjective Date of Service: 05/13/18 - CC: syncope Interval History: The patient c/o being hungry (NPO), otherwise stable. Medications Active Medications: Acetaminophen (Tylenol Tab*) 650 mg PO Q4H PRN PRN Reason: FEVER/PAIN Ammonium Lactate (Lac-Hydrin 12 %) 1 applic TOPICAL BID [facility] Last Admin: 05/12/18 22:24 Dose: 1 applic Aspirin (Aspirin Ec Tab*) 81 mg PO DAILY [facility] Last Admin: 05/13/18 09:09 Dose: 81 mg Bisacodyl (Dulcolax Supp*) 10 mg DC DAILY PRN PRN Reason: CONSTIPATION Bupropion HCl (Wellbutrin Sr Tab*) 100 mg PO BID [facility] Last Admin: 05/13/18 09:10 Dose: 100 mg Dextrose (D50w Syringe 50 Ml*) 12.5 gm IV PUSH .FOR FS < 60 - SS PRN PRN Reason: FS < 60 Docusate Sodium (Colace Cap*) 100 mg PO BID [facility] Last Admin: 05/13/18 09:10 Dose: 100 mg Heparin Sodium (Porcine) (Heparin Vial(*)) 5,000 units SUBCUT Q8HR [facility] Last Admin: 05/13/18 12:52 Dose: Not Given Hydralazine HCl (Apresoline Iv*) 5 mg IV SLOW PU Q6H PRN PRN Reason: BLOOD PRESSURE Sodium Chloride (Ns 0.9% 1000 Ml*) 1,000 mls @ 100 mls/hr IV PER RATE [facility] Last Admin: 05/11/18 13:55 Dose: 100 mls/hr Sodium Chloride (Ns 0.9% 1000 Ml*) 1,000 mls @ 75 mls/hr IV PER RATE [facility] Last Admin: 05/13/18 06:00 Dose: 75 mls/hr Cefazolin Sodium 500 mg/ (Sodium Chloride) 50 mls @ 200 mls/hr IVPB Q8H [facility] Insulin Human Lispro (Humalog*) 0 units SUBCUT [facility]; Protocol Last Admin: 05/13/18 12:53 Dose: Not Given Lisinopril (Prinivil Tab*) 40 mg PO DAILY [facility] Last Admin: 05/13/18 09:07 Dose: 40 mg Metoprolol Succinate (Toprol Xl Tab*) 50 mg PO DAILY [facility] Last Admin: 11/23/18 09:09 Dose: 50 mg Ondansetron HCl (Zofran Inj*) 4 mg IV Q6H PRN PRN Reason: NAUSEA Polyethylene Glycol/Electrolytes (Miralax*) 17 gm PO DAILY PRN PRN Reason: CONSTIPATION Senna (Senokot Tab*) 2 tab PO BEDTIME PRN PRN Reason: CONSTIPATION Last Admin: 05/12/18 22:21 Dose: 2 tab Solifenacin (Vesicare(Nf)) 5 mg PO DAILY [facility] Last Admin: 05/13/18 09:10 Dose: 5 mg Objective Vital Signs: Temp Pulse Resp BP Pulse Ox 98.3 F 65 20 156/79 97 05/13/18 10:57 05/13/18 10:57 05/13/18 10:57 05/13/18 10:57 05/13/18 10:57 Oxygen Devices in Use Now: None Appearance: older male, lying in bed, no acute distress Eyes: No Scleral Icterus, PERRLA Ears/Nose/Mouth/Throat: Mucous Membranes Moist Neck: NL Appearance and Movements; NL JVP, No Thyroid Enlargement, Masses Respiratory: Symmetrical Chest Expansion and Respiratory Effort, Clear to Auscultation Cardiovascular: NL Sounds; No Murmurs; No JVD, RRR Abdominal: NL Sounds; No Tenderness; No Distention Extremities: No Clubbing, Cyanosis Skin: - - dressing on legs, hyperemic, edema, not examined under dressing. Neurological: - - answers questions, follows commands. Lines/Tubes/Other Access: Clean, Dry and Intact Peripheral IV Laboratory Results: 05/11/18 09:01 05/12/18 05:29 INR (Anticoag Therapy) 0.97 (0.77-1.02) 05/11/18 09:01 APTT 32.3 seconds (26.0-36.3) 05/11/18 09:01 Total Bilirubin 0.70 mg/dL (0.2-1.0) 05/11/18 09:01 AST 20 U/L (13-39) 05/11/18 09:01 ALT 14 U/L (7-52) 05/11/18 09:01 Alkaline Phosphatase 117 U/L (34-104) H 05/11/18 09:01 B-Natriuretic Peptide 458 pg/mL (<=100) H 05/11/18 08:51 Total Protein 6.7 g/dL (6.4-8.9) 05/11/18 09:01 Albumin 4.1 g/dL (3.2-5.2) 05/11/18 09:01 Globulin 2.6 g/dL (2-4) 05/11/18 09:01 Albumin/Globulin Ratio 1.6 (1-3) 05/11/18 09:01 Triglycerides 96 mg/dL 05/12/18 05:29 Cholesterol 148 mg/dL 05/12/18 05:29 LDL Cholesterol 90 mg/dL 05/12/18 05:29 HDL Cholesterol 39.1 mg/dL 05/12/18 05:29 TSH 2.48 mcIU/mL (0.34-5.60) 05/11/18 09:01 05/11/18 05/11/18 05/11/18 09:01 15:17 16:49 Troponin I 0.05 H* 0.10 H* 0.10 H* 05/11/18 05/12/18 19:50 00:48 Troponin I 0.08 H* 0.10 H* Diagnostic Imaging: Echo 05/11/18 inferior posterior scar at the base, EF 50% EKG Data: RBBB alternates LBBB on ECG's over time. Monitor: NSR, frequent PVC's, rare V bigeminy. Assessment/Plan 78 yo male admitted with 2 recent syncopal events getting up in AM. PMHx DM T2, HTN, Chol, obese, RBBB and LBBB. Syncope: S/p pacer implant today. Differential includes increased vagal tone w/ constipation, othostatic BP drop due to age, hypoglycemia in addition to conduction disease. CAD: I still recommmend starting a statin, Lipator 40 or rosuvastatin 20 mg. Continue metroprolol. Out patient stress test should be scheduled.
[2018-05-13] MEDS: Ammonium Lactate 12% 1 APPLIC TUBE TOPICAL SCH ×2 (16:47→20:41)
--- NOTE | 2018-05-13 18:01 | CONS ---
MEDICAL ONCOLOGY/HEMATOLOGY CONSULTATION NOTE: DATE OF CONSULT: 05/11/18 REASON FOR CONSULTATION: Erythrocytosis. HISTORY OF PRESENT ILLNESS: Mr. Sanchez is a 78-year-old male with underlying history of hypertension, coronary artery disease and diabetes. He presented to the emergency room with 2 episodes of syncope. He had had low blood sugars on several occasions. He denied any chest pain or shortness of breath. He lives with his sister who found him with lack of consciousness. She reports that he was only unconscious for a very short period of time. Prior episode was approximately 1 week ago. He denied any chest pain, shortness of breath, or any recent infectious symptoms. We have been consulted at this time because of elevated H and H. Hemoglobin is 18.6 at the time of admission. Reviewing old labs, hemoglobin in 2012 was 16.9 , but has been more elevated subsequently; in September of 2015, it was 18.5; in February of 2017, 18.1; in December of this year, 18.2. On all of these occasions , his white count and platelet count were essentially within the normal range including currently. PAST MEDICAL HISTORY: 1. Diabetes mellitus. 2. Hypertension. 3. Coronary artery disease. 4. Cardiomyopathy with decreased ejection fraction years ago, but more recent ejection fraction normal. 5. History of prostate cancer. PAST SURGICAL HISTORY: None. Denies any hospitalizations other than for uncontrolled diabetes approximately 3 years ago. He reports that his diabetes diagnosis was several years before that MEDICATIONS: 1. Lantus 20 units at bedtime and 60 units in the morning. 2. Bupropion 100 mg b.i.d. 3. VESIcare 5 mg daily. 4. Toprol-XL 50 mg daily. 5. Lisinopril 40 mg daily. ALLERGIES: CELEXA. FAMILY HISTORY: Mother at age 98. Father of an OR at age 62. SOCIAL HISTORY: Prior smoker. Stopped smoking approximately 2 years ago, at which point he was just using a pipe and smoked cigarettes for many years before that. Denies any significant alcohol. Lives with his sister Keren, who is his surrogate decision maker. REVIEW OF SYSTEMS: Denies any recent infections. Denies any significant change in appetite or weight. Denies any headaches, visual changes, tingling, numbness or weakness in the extremities. Denies any chest pain, shortness of breath or palpitations. Denies any change in bowel or bladder habits. Review of systems otherwise negative. PHYSICAL EXAM: A 78-year-old male in no acute distress. Vital Signs: Blood pressure 162/98, pulse 107, afebrile. HEENT: PERRL, EOMI. No erythema or exudates and no scleral icterus. Lungs: Clear. Heart: Regular rate and rhythm without murmurs, rubs or gallops. Abdomen: Soft, nontender without masses or organomegaly, specifically no enlarged spleen. Extremities: 2+ pedal edema bilaterally, small abrasions on the lower leg, significant scaling of the skin both on the hands and on the lower extremities. DIAGNOSTIC STUDIES/LAB DATA: CBC; white count 10,700, RBC 6.24, hemoglobin 18.6 , hematocrit 55, platelet count 165,000. Electrolytes without significant abnormalities. BUN and creatinine 20/1.33, similar to baseline. LFTs normal. Chest x-ray and noncontrast CT of the brain without significant abnormalities. IMPRESSION: 1. A 78-year-old male with underlying diabetes, hypertension, who has a syncopal episode. Leading possibilities would seem to be hypoglycemia versus orthostasis. He is being admitted by the hospitalist service for further workup. 2. Erythrocytosis. He has had an elevated white count for at least a 2-year period and hemoglobin is above typical going back at least 5 years. These have been present in almost all occasions. There is no significant association with any elevation of the cell lines, no obvious splenomegaly. It is certainly possible that this patient has polycythemia vera. Laboratory studies including erythropoietin level and JAK2 [id number] has been ordered. If the patient has positive JAK2, this would confirm the diagnosis of polycythemia vera. In the situation, one would expect to him to have a subnormal erythropoietin level. On the other hand, if the patient does not have the JAK2 mutation, but does have a subnormal erythropoietin level, then further laboratory studies including looking for other mutations of exon 12 would be in order. If the erythropoietin level is subnormal and this is also normal, then bone marrow biopsy should be performed. If his serum erythropoietin level is elevated in the setting of being JAK2 negative and this would be almost certainly secondary erythrocytosis. In a situation, other causes for erythrocytosis would need to be looked for especially in the setting of normal O2 saturations and no longer smoking. These would include a further imaging of the chest, abdomen, and brain looking for erythropoietin-secreting tumors. Further workup will be recommended if necessary once erythropoietin and JAK2 levels are available. [id number]/[facility] #: [id number] [facility]
[2018-05-13] MEDS: ceFAZolin 500 MG VIAL(*) 500 MG in NS 0.9% 50 ML* 50 ML IVPB SCH (20:42)
[2018-05-14] MEDS: ceFAZolin 500 MG VIAL(*) 500 MG in NS 0.9% 50 ML* 50 ML IVPB SCH ×2 (04:17→12:14)
[2018-05-14 04:55] LABS: ABS Basophils 0 10^3/ul (0-0.2); ABS Eosinophils 0.1 10^3/ul (0-0.6); ABS Neutrophils 6.5 10^3/ul (1.5-7.7); ABS Nucleated RBC 0 10^3/ul; Eosinophil % 1.3 % (0-6); Hematocrit 49 % (42-52); Hemoglobin 16.6 g/dl (14.0-18.0); Lymphocyte % 11.7 % (25-47); Mean Corpuscular HGB Conc 34 g/dl (31-36); Mean Corpuscular Hemoglobin 30 pg (27-31); Mean Corpuscular Volume 89 fL (80-94); Mean Platelet Volume 7.3 fL (7.4-10.4); Nucleated Red Blood Cells % 0; Platelet Count 133 10^3/ul (150-450); Red Cell Distribution Width 14 % (10.5-15); White Blood Count 8.7 10^3/ul (3.5-10.8)
[2018-05-14] MEDS: Heparin VIAL(*) 5000 UNITS/ML VIAL (FIVE THOUSAND) SUBCUT SCH ×3 (05:22→20:56)
--- NOTE | 2018-05-14 08:00 | PN ---
Subjective Date of Service: 05/14/18 Objective Active Medications: Acetaminophen (Tylenol Tab*) 650 mg PO Q4H PRN Ammonium Lactate (Lac-Hydrin 12 %) 1 applic TOPICAL BID [facility] Aspirin (Aspirin Ec Tab*) 81 mg PO DAILY [facility] Atorvastatin Calcium (Lipitor*) 40 mg PO 1700 [facility] Bisacodyl (Dulcolax Supp*) 10 mg OK DAILY PRN Bupropion HCl (Wellbutrin Sr Tab*) 100 mg PO BID [facility] Dextrose (D50w Syringe 50 Ml*) 12.5 gm IV PUSH .FOR FS < 60 - SS PRN Docusate Sodium (Colace Cap*) 100 mg PO BID [facility] Heparin Sodium (Porcine) (Heparin Vial(*)) 5,000 units SUBCUT Q8HR [facility] Hydralazine HCl (Apresoline Iv*) 5 mg IV SLOW PU Q6H PRN Sodium Chloride (Ns 0.9% 1000 Ml*) 1,000 mls @ 100 mls/hr IV PER RATE [facility] Sodium Chloride (Ns 0.9% 1000 Ml*) 1,000 mls @ 75 mls/hr IV PER RATE [facility] Cefazolin Sodium 500 mg/ (Sodium Chloride) 50 mls @ 200 mls/hr IVPB Q8H [facility] Influenza Virus Vaccine (Fluarix *Quad* 2018-19*) 0.5 ml IM .ONCE ONE Insulin Human Lispro (Humalog*) 0 units SUBCUT AC [facility]; Protocol Lisinopril (Prinivil Tab*) 40 mg PO DAILY [facility] Metoprolol Succinate (Toprol Xl Tab*) 50 mg PO DAILY [facility] Ondansetron HCl (Zofran Inj*) 4 mg IV Q6H PRN Pneumococcal Polyvalent Vaccine (Pneumococcal Vac 23-Polyvalent*) 0.5 ml IM .ONCE ONE Polyethylene Glycol/Electrolytes (Miralax*) 17 gm PO DAILY PRN Senna (Senokot Tab*) 2 tab PO BEDTIME PRN Solifenacin (Vesicare(Nf)) 5 mg PO DAILY [facility] Vital Signs: Temp Pulse Resp BP Pulse Ox 98.1 F 69 16 155/85 98 05/14/18 05:32 05/14/18 05:32 05/14/18 06:35 05/14/18 05:32 05/14/18 05:32 Oxygen Devices in Use Now: None Result Diagrams: 05/14/18 04:45 05/12/18 05:29 Additional Lab and Data: . Assess/Plan/Problems-Billing Assessment: Mr. Sanchez is a 78 yo male with a PMH of questionable CAD and cardiomyopathy, DM, HTN who was admitted on 05/11/18 with syncope on getting out of bed and relative hypoglycemia. - Patient Problems (1) Syncope Comment: - Mildly orthostatic in the ED, resolved with IV fluids. - Ddimer elevated but CTA chest negative. - Question if related to AM hypoglycemia - Appreciate consultation from cardiology, concern for EKG with flip from left to right bundle branch block and elevated troponins. Echo shows a new akinesis in the inferior posterior region. Pacemaker placed 05/13/18 and then later follow up with stress test. (2) CAD (coronary artery disease) Comment: - Echo confirms a previous [place]. - Continue aspirin, lisinopril, atorvastatin and metoprolol. - Will need ischemic work up when recovered from pacemaker placement (3) Elevated hemoglobin Comment: - Appreciate consult from Dr. Adkins who ordered erythropoietin and Jak2 mutation (4) HTN (hypertension) Comment: - SBP 150s. - Continue metoprolol and lisinopril. (5) Hyperlipidemia Comment: - Continue atorvastatin (6) Type II diabetes mellitus Comment: - BG 120s - Continue AM lantus, PM long acting insulin held due concern for hypoglycemia causing syncope/seizure (7) Depression Comment: - Continue bupropion. (8) DVT prophylaxis Comment: - SQ heparin (9) Full code status Comment: Status and Disposition: OBV. Anticipate discharge to home when medically stable.
[2018-05-14] MEDS: Aspirin EC TAB* 81 MG TAB.EC PO SCH (08:19)
[2018-05-14] MEDS: Metoprolol Succinate XL TAB* 50 MG PO SCH (08:19)
[2018-05-14] MEDS: Docusate CAP* 100 MG PO SCH ×2 (08:19→20:56)
[2018-05-14] MEDS: CMC:Solifenacin(NF) 5 MG TAB PO SCH (08:19)
[2018-05-14] MEDS: Lisinopril TAB* 10 MG PO SCH (08:19)
[2018-05-14] MEDS: buPROPion SR TAB.SR* 100 MG PO SCH ×2 (08:19→20:56)
[2018-05-14] MEDS: Insulin LISPRO* 1 UNITS UNIT SUBCUT SCH ×3 (08:45→17:03)
[2018-05-14] MEDS ORDERED: Pneumococcal *Vac Polyvalent 0.5 ML VIAL IM ONE (09:00)
--- NOTE | 2018-05-14 10:16 | PN ---
Subjective Date of Service: 05/14/18 - CC: syncope Interval History: No c/o. Pt does not remember procedure. He denies pain at the incision site, no shortness of breath. No dizziness. Medications Active Medications: Acetaminophen (Tylenol Tab*) 650 mg PO Q4H PRN PRN Reason: FEVER/PAIN Ammonium Lactate (Lac-Hydrin 12 %) 1 applic TOPICAL BID [facility] Last Admin: 05/13/18 20:41 Dose: 1 applic Aspirin (Aspirin Ec Tab*) 81 mg PO DAILY [facility] Last Admin: 05/14/18 08:19 Dose: 81 mg Atorvastatin Calcium (Lipitor*) 40 mg PO 1700 [facility] Bisacodyl (Dulcolax Supp*) 10 mg MS DAILY PRN PRN Reason: CONSTIPATION Bupropion HCl (Wellbutrin Sr Tab*) 100 mg PO BID [facility] Last Admin: 05/14/18 08:19 Dose: 100 mg Dextrose (D50w Syringe 50 Ml*) 12.5 gm IV PUSH .FOR FS < 60 - SS PRN PRN Reason: FS < 60 Docusate Sodium (Colace Cap*) 100 mg PO BID [facility] Last Admin: 05/14/18 08:19 Dose: 100 mg Heparin Sodium (Porcine) (Heparin Vial(*)) 5,000 units SUBCUT Q8HR [facility] Last Admin: 05/14/18 05:22 Dose: 5,000 units Hydralazine HCl (Apresoline Iv*) 5 mg IV SLOW PU Q6H PRN PRN Reason: BLOOD PRESSURE Sodium Chloride (Ns 0.9% 1000 Ml*) 1,000 mls @ 100 mls/hr IV PER RATE [facility] Last Admin: 05/11/18 13:55 Dose: 100 mls/hr Sodium Chloride (Ns 0.9% 1000 Ml*) 1,000 mls @ 75 mls/hr IV PER RATE [facility] Last Admin: 05/13/18 20:42 Dose: 75 mls/hr Cefazolin Sodium 500 mg/ (Sodium Chloride) 50 mls @ 200 mls/hr IVPB Q8H [facility] Last Admin: 05/14/18 04:17 Dose: 200 mls/hr Insulin Human Lispro (Humalog*) 0 units SUBCUT [facility]; Protocol Last Admin: 05/14/18 08:45 Dose: Not Given Lisinopril (Prinivil Tab*) 40 mg PO DAILY [facility] Last Admin: 05/14/18 08:19 Dose: 40 mg Metoprolol Succinate (Toprol Xl Tab*) 50 mg PO DAILY [facility] Last Admin: 05/14/18 08:19 Dose: 50 mg Ondansetron HCl (Zofran Inj*) 4 mg IV Q6H PRN PRN Reason: NAUSEA Polyethylene Glycol/Electrolytes (Miralax*) 17 gm PO DAILY PRN PRN Reason: CONSTIPATION Senna (Senokot Tab*) 2 tab PO BEDTIME PRN PRN Reason: CONSTIPATION Last Admin: 05/12/18 22:21 Dose: 2 tab Solifenacin (Vesicare(Nf)) 5 mg PO DAILY [facility] Last Admin: 05/14/18 08:19 Dose: 5 mg Objective Vital Signs: Temp Pulse Resp BP Pulse Ox 98.4 F 69 18 163/88 97 05/14/18 07:12 05/14/18 07:12 05/14/18 07:12 05/14/18 07:12 05/14/18 07:12 Oxygen Devices in Use Now: None Appearance: older male, lying in bed, no acute distress, arm immobilizer on. Eyes: No Scleral Icterus, PERRLA Ears/Nose/Mouth/Throat: Mucous Membranes Moist Neck: NL Appearance and Movements; NL JVP, No Thyroid Enlargement, Masses Respiratory: Symmetrical Chest Expansion and Respiratory Effort, Clear to Auscultation Cardiovascular: NL Sounds; No Murmurs; No JVD, RRR Abdominal: NL Sounds; No Tenderness; No Distention Extremities: No Clubbing, Cyanosis Skin: - - incision left shoulder w/o evidnce of infection, no ecchymosis, no hematoma. Non tender. Neurological: - - answers questions, follows commands. Lines/Tubes/Other Access: Clean, Dry and Intact Peripheral IV Laboratory Results: 05/14/18 04:45 05/12/18 05:29 INR (Anticoag Therapy) 0.97 (0.77-1.02) 05/11/18 09:01 APTT 32.3 seconds (26.0-36.3) 05/11/18 09:01 Total Bilirubin 0.70 mg/dL (0.2-1.0) 05/11/18 09:01 AST 20 U/L (13-39) 11/21/18 09:01 ALT 14 U/L (7-52) 05/11/18 09:01 Alkaline Phosphatase 117 U/L (34-104) H 05/11/18 09:01 B-Natriuretic Peptide 458 pg/mL (<=100) H 05/11/18 08:51 Total Protein 6.7 g/dL (6.4-8.9) 05/11/18 09:01 Albumin 4.1 g/dL (3.2-5.2) 05/11/18 09:01 Globulin 2.6 g/dL (2-4) 05/11/18 09:01 Albumin/Globulin Ratio 1.6 (1-3) 05/11/18 09:01 Triglycerides 96 mg/dL 05/12/18 05:29 Cholesterol 148 mg/dL 05/12/18 05:29 LDL Cholesterol 90 mg/dL 05/12/18 05:29 HDL Cholesterol 39.1 mg/dL 05/12/18 05:29 TSH 2.48 mcIU/mL (0.34-5.60) 05/11/18 09:01 05/11/18 05/11/18 05/11/18 09:01 15:17 16:49 Troponin I 0.05 H* 0.10 H* 0.10 H* 05/11/18 05/12/18 19:50 00:48 Troponin I 0.08 H* 0.10 H* Diagnostic Imaging: Echo 05/11/18 inferior posterior scar at the base, EF 50% CXR 05/13/18 and 05/14/18: no pneumothorax, lead placement stable. EKG Data: RBBB alternates LBBB on ECG's over time. Monitor: NSR, rare atrial pacing. Pacemaker interogation: Atrial lead: P waves 3.6 mV Impedance: 475 Ohms Pacing threshold: 0.5 v @ 0.4 ms Vent. lead: R waves: >20 mV 722 Ohms 0.625v@ 0.4 ms Assessment/Plan 78 yo male admitted with 2 recent syncopal events getting up in AM. PMHx DM T2, HTN, Chol, obese, RBBB and LBBB. Syncope: POD #1 pacemaker implantation, good function.0 Differential includes increased vagal tone w/constipation, orthostatic BP drop due to age+more, hypoglycemia in addition to conduction disease. From a cardiac standpoint OK to go home or to rehab. Needs antibiotics Keflex 500 mg TID for 4 days on discharge. I will schedule f/u wound check at our office next week, but also have pt/ sister call [phone] to schedule on Wednesday. CAD: Lipator started. Continue metroprolol. Continue ASA. Out patient stress test should be scheduled-can be arranged as outpatient. HTN: Remains high. Consider increasing metoprolol Or add CCB, amlodipine or diltiazem.
[2018-05-14] MEDS: NS 0.9% 1000 ML* 1,000 ML IV SCH (10:30)
--- NOTE | 2018-05-14 11:43 | PN ---
Subjective Date of Service: 05/14/18 Interval History: Mr. Sanchez denies complaint and is eager for discharge to home. Objective Active Medications: Acetaminophen (Tylenol Tab*) 650 mg PO Q4H PRN Ammonium Lactate (Lac-Hydrin 12 %) 1 applic TOPICAL BID [facility] Aspirin (Aspirin Ec Tab*) 81 mg PO DAILY [facility] Atorvastatin Calcium (Lipitor*) 40 mg PO 1700 [facility] Bisacodyl (Dulcolax Supp*) 10 mg OK DAILY [facility] Bupropion HCl (Wellbutrin Sr Tab*) 100 mg PO BID [facility] Dextrose (D50w Syringe 50 Ml*) 12.5 gm IV PUSH .FOR FS < 60 - SS PRN Docusate Sodium (Colace Cap*) 100 mg PO BID [facility] Heparin Sodium (Porcine) (Heparin Vial(*)) 5,000 units SUBCUT Q8HR [facility] Hydralazine HCl (Apresoline Iv*) 5 mg IV SLOW PU Q6H PRN Sodium Chloride (Ns 0.9% 1000 Ml*) 1,000 mls @ 100 mls/hr IV PER RATE [facility] Sodium Chloride (Ns 0.9% 1000 Ml*) 1,000 mls @ 75 mls/hr IV PER RATE [facility] Cefazolin Sodium 500 mg/ (Sodium Chloride) 50 mls @ 200 mls/hr IVPB Q8H [facility] Insulin Human Lispro (Humalog*) 0 units SUBCUT AC [facility]; Protocol Lisinopril (Prinivil Tab*) 40 mg PO DAILY [facility] Metoprolol Succinate (Toprol Xl Tab*) 50 mg PO DAILY [facility] Ondansetron HCl (Zofran Inj*) 4 mg IV Q6H PRN Polyethylene Glycol/Electrolytes (Miralax*) 17 gm PO DAILY PRN Senna (Senokot Tab*) 2 tab PO BEDTIME PRN Solifenacin (Vesicare(Nf)) 5 mg PO DAILY [facility] Vital Signs: Temp Pulse Resp BP Pulse Ox 98.4 F 69 18 163/88 97 05/14/18 07:12 05/14/18 07:12 05/14/18 07:12 05/14/18 07:12 05/14/18 07:12 Oxygen Devices in Use Now: None Appearance: Male lying in bed in NAD Eyes: No Scleral Icterus Ears/Nose/Mouth/Throat: Mucous Membranes Moist Neck: Trachea Midline Respiratory: Symmetrical Chest Expansion and Respiratory Effort Cardiovascular: NL Sounds; No Murmurs; No JVD, No Edema Abdominal: NL Sounds; No Tenderness; No Distention Extremities: No Edema Skin: No Rash or Ulcers Neurological: Alert and Oriented x 3 Nutrition: Taking PO's Result Diagrams: 05/14/18 04:45 05/12/18 05:29 Additional Lab and Data: . Assess/Plan/Problems-Billing Assessment: Mr. Sanchez is a 78 yo male with a PMH of questionable CAD and cardiomyopathy, DM, HTN who was admitted on 05/11/18 with syncope on getting out of bed and relative hypoglycemia. - Patient Problems (1) Syncope Comment: - Mildly orthostatic in the ED, resolved with IV fluids. - Ddimer elevated but CTA chest negative. - Question if related to AM hypoglycemia - Appreciate consultation from cardiology, concern for EKG with flip from left to right bundle branch block and elevated troponins. Echo shows a new akinesis in the inferior posterior region. Pacemaker placed 05/13/18 and then later follow up with stress test. (2) CAD (coronary artery disease) Comment: - Echo confirms a previous [place]. - Continue aspirin, lisinopril, atorvastatin and metoprolol. - Will need ischemic work up when recovered from pacemaker placement (3) Elevated hemoglobin Comment: - Appreciate consult from Dr. Adkins who ordered erythropoietin and Jak2 mutation - Will need to follow up with hematology outpatient (4) HTN (hypertension) Comment: - SBP 150s. - Continue metoprolol and lisinopril. (5) Hyperlipidemia Comment: - Continue atorvastatin (6) Type II diabetes mellitus Comment: - BG 120s - Continue AM lantus, PM long acting insulin held due concern for hypoglycemia causing syncope/seizure (7) Depression Comment: - Continue bupropion. (8) DVT prophylaxis Comment: - SQ heparin (9) Full code status Comment: Status and Disposition: Inpatient for pacemaker. Discharge to home.
[2018-05-14] MEDS: Ammonium Lactate 12% 1 APPLIC TUBE TOPICAL SCH ×2 (11:51→20:56)
[2018-05-14] MEDS: Atorvastatin* 40 MG TAB PO SCH (17:02)
[2018-05-14] MEDS ORDERED: Ondansetron ODT TAB* 4 MG SL PRN (17:38)
[2018-05-14] MEDS: Cephalexin CAP* 500 MG PO SCH (20:56)
--- NOTE | 2018-05-15 00:35 | DS ---
C: Dr. Vargas* [facility] MEDICINE DISCHARGE SUMMARY: DATE OF ADMISSION: 05/11/18. DATE OF DISCHARGE: 05/14/18. PRIMARY CARE PHYSICIAN: Dr. Elizabeth. ATTENDING PHYSICIAN: Dr. Kathi Navarro * (dictation provided by Catherine Todd NP ). PRIMARY DIAGNOSES: 1. Syncope. 2. Pacemaker placement. 3. Hypoglycemia, now resolved. 4. Orthostatic hypotension. SECONDARY DIAGNOSES: 1. Type 2 diabetes insulin dependent. 2. Hypertension. 3. Hyperlipidemia. 4. Question of coronary artery disease with suspected myocardial infarction based on echo results during this hospitalization. 5. History of prostate cancer. MEDICATIONS AN OUTPATIENT: 1. Lantus insulin 60 units subcutaneously daily. The patient to discontinue p.m. dose. 2. Bupropion ER 100 mg p.o. b.i.d. 3. VESIcare 5 mg p.o. daily. 4. Metoprolol succinate 50 mg p.o. daily. 5. Lisinopril 40 mg p.o. daily. 6. Amlodipine 5 mg p.o. daily. 7. Senna one tablet at bedtime. 8. Keflex 500 mg p.o. t.i.d. x4 days. 9. Atorvastatin 40 mg p.o. daily. 10. Aspirin 81 mg p.o. daily. HOSPITAL COURSE: Mr. Sanchez is a 78-year-old male with a past medical history of insulin-dependent type 2 diabetes who presented to the hospital on 05/11/18 with concern for two episodes of syncope. Please see dictated H and P from Merrill Lam NP for complete details. In brief, the patient had had two episodes on first getting up in the morning where he had fainted. It was noted during these episodes that his blood sugar has been running low to the 60s after he passed out. On awakening, he had a blood pressure that was high over 200 systolically with a diastolic in the 120s range. In the emergency room, Mr. Sanchez had CT brain, which showed central and cortical atrophy, but no acute change. He had a chest x-ray showed no active cardiopulmonary disease. Had chest thorax CTA that showed no PE. It did however show a borderline enlarged indeterminate lymph node of the anterior mediastinum. The radiologist notes that given his history of malignancy, this may represent metastatic disease. 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 There was an ejection fraction of 50% to 55%, and the akinesis in the inferior wall was new since 2016. The patient was seen in consultation by Dr. Hernandez, who also may note the fact that the patient had an EKG, which had a new right bundle branch block, which was changed from a previous left bundle branch block. She was concerned for this electrical conduction abnormality and in the setting of syncope and recommended pacemaker placement. Pacemaker was placed and he tolerated this procedure well. For his reported morning hypoglycemia, his p.m. long- acting insulin was held and with this his blood sugar has bene well controlled inpatient. During the hospitalization, his blood pressure has been slightly elevated running 140s to 170s and for that reason amlodipine has been added to the medication regimen. As noted, Mr. Sanchez had an echocardiogram on arrival that showed a new akinesis in the inferior wall. The suspicion is that this reflects an old [place]. The patient has been optimized medically with aspirin and atorvastatin, as well as his longstanding metoprolol. He will be following up with Dr. Hernandez as an outpatient regarding the arrangements for a stress test when he recovers from pacemaker and is stable enough to proceed with that testing. The only other item of note is that on arrival, the patient did have a hemoglobin that was 18.6 with hematocrit of 55. For that reason, he was seen in consultation by Dr. Adkins and a concern for possible polycythemia vera. Erythropoietin level and JAK2 [id number] had been ordered. The patient should follow up with the oncologist as an outpatient regarding the findings from this testing. DISPOSITION: Home. DIET: Heart healthy low carb. ACTIVITY: As tolerated with precautions and restrictions on the movement of left upper extremity for three months based on the standard pacemaker instructions. FOLLOWUP PLANS: 1. Please follow up with Dr. Hernandez. The patient's sister has been asked to call on Wednesday for an appointment. 2. Please follow up with Dr. Adkins within the next 1 to 2 weeks regarding the findings from the workup for elevated hemoglobin. 3. Please follow up with Dr. Vargas per routine within the next week after his hospitalization. TIME SPENT: Approximately 60 minutes was spent on the discharge of this patient , more than half the time was spent with her at the bedside reviewing the events leading up to this hospitalization, performing the physical examination, and reviewing my plan of care. CATHERINE TODD NP [id number]/CPS #: [id number] ADDENDUM: On discussion with sister and patient, concerns were raised that patient may benefit from rehab prior to returning home to independent living with her. Plan for PT and OT consults in the AM for evaluation and discussion with case management regarding possible rehab placement if appropriate. DISCHARGE HELD. LINDA
--- NOTE | 2018-05-15 01:17 | OP ---
PACEMAKER IMPLANTATION: DATE OF OPERATION: 05/13/18 DATE OF : 44 SURGEON: Kayla Hernandez MD ANESTHESIA: MAC. PRE-OP DIAGNOSIS: Syncope, alternating left and right bundles. POST-OP DIAGNOSIS: Syncope, alternating left and right bundles. PROCEDURE: Dual-chamber pacemaker implantation. ESTIMATED BLOOD LOSS: Less than 2 cc. COMPLICATIONS: None. DESCRIPTION OF PROCEDURE: The patient is right-handed and the left subclavian fossa was prepped and draped in the usual sterile fashion. Indications, risks, benefits, and details of the procedure had been discussed with the patient and his sister and consent was signed. Following the draping, a time-out was called. 10 cc of radiopaque dye was injected in the left upper extremity outlining the left axillary and left subclavian vein. This had to be repeated as the pillows had not been removed from the patient's hea d. Following dye injection, local anesthesia was given in the left subclavian fossa in addition to a tot al of 6 mg of Versed and 50 mcg of fentanyl. Following local anesthesia using a 10-blade knife, a 3-cm incision was made in the left subclavian fo ssa and using Bovie and blunt dissection, it was extended to the level of the pectoralis muscle. Add itional lidocaine was infused inferiorly and medially and a small pocket was fashioned using blunt di ssection. Using a modified Seldinger technique, the left subclavian vein was cannulated, a guidewire inserted a nd the procedure was repeated with a second guidewire. Using an introducer technique, the right ventricular lead was guided into the right ventricular apex, it took 2 tries with active fixation to get good pacing and sensing thresholds. Using the second gu idewire and introducer, the right atrial lead was guided into the right atrial appendage, actively fi xed and placed. Pacing and sensing thresholds were checked and found to be good. The pocket was copiously irrigated. The leads were rechecked, they were then sutured to the pocket u sing 0 silk suture. The leads were attached to the generator. The generator was placed in the pocke t and the incision was closed using 2 layers of resorbable suture, 2-0 followed by 4-0, followed by s taples and external dressing. Thresholds externally remained good. High-voltage thresholds had been checked earlier and there was no diaphragmatic pacing. FINDINGS: The system is an MRI-compatible Medtronic system. The device is an SeroMatch XT DR MRI W1DR1, serial number [id number]. The atrial lead is a Medtronic model 5076, serial number [id number]. The ventricular lead is a [employer] onic model 5076, serial number [id number]. P-waves were sensed at 2.5 millivolts with an atrial lead impedance of 494 ohms and an atrial pacing threshold of 0.75 volts at 0.4 milliseconds. The ventricular lead impedance was 836 ohms with R-wave sensed at 8.75 millivolts and a ventricular p acing threshold of 0.5 volts at 0.4 milliseconds. The patient was programmed in DDD mode with the lower rate of 60 beats a minute, upper tracking rate of 130 beats a minute. The patient was hemodynamically stable throughout the procedure and in transfer to Recovery and floor . There were no complications. [id number]/[facility] #: [id number]
[2018-05-15] MEDS: Heparin VIAL(*) 5000 UNITS/ML VIAL (FIVE THOUSAND) SUBCUT SCH ×3 (05:07→21:54)
--- NOTE | 2018-05-15 09:05 | PN ---
Subjective Date of Service: 05/15/18 Interval History: Mr. Sanchez reports feeling fine today. He denies palpitations, chest pain, SOB, nausea or abdominal pain. Objective Active Medications: Acetaminophen (Tylenol Tab*) 650 mg PO Q4H PRN Amlodipine Besylate (Norvasc Tab*) 5 mg PO DAILY [facility] Ammonium Lactate (Lac-Hydrin 12 %) 1 applic TOPICAL BID [facility] Atorvastatin Calcium (Lipitor*) 40 mg PO 1700 [facility] Bisacodyl (Dulcolax Supp*) 10 mg AR DAILY PRN Bupropion HCl (Wellbutrin Sr Tab*) 100 mg PO BID [facility] Cephalexin HCl (Keflex Cap*) 500 mg PO TID [facility] Dextrose (D50w Syringe 50 Ml*) 12.5 gm IV PUSH .FOR FS < 60 - SS PRN Docusate Sodium (Colace Cap*) 100 mg PO BID [facility] Heparin Sodium (Porcine) (Heparin Vial(*)) 5,000 units SUBCUT Q8HR [facility] Insulin Human Lispro (Humalog*) 0 units SUBCUT AC [facility]; Protocol Lisinopril (Prinivil Tab*) 40 mg PO DAILY [facility] Metoprolol Succinate (Toprol Xl Tab*) 50 mg PO DAILY [facility] Ondansetron HCl (Zofran Odt Tab*) 4 mg SL Q6H PRN Polyethylene Glycol/Electrolytes (Miralax*) 17 gm PO DAILY PRN Senna (Senokot Tab*) 2 tab PO BEDTIME PRN Solifenacin (Vesicare(Nf)) 5 mg PO DAILY [facility] Vital Signs: Temp Pulse Resp BP Pulse Ox 98.4 F 72 18 152/76 97 05/15/18 03:58 05/15/18 03:58 05/15/18 03:58 05/15/18 03:58 05/15/18 03:58 Oxygen Devices in Use Now: None Appearance: Male sitting up in chair in NAD Eyes: No Scleral Icterus Ears/Nose/Mouth/Throat: Mucous Membranes Moist Neck: Trachea Midline Respiratory: Symmetrical Chest Expansion and Respiratory Effort, Clear to Auscultation Cardiovascular: NL Sounds; No Murmurs; No JVD, No Edema Abdominal: NL Sounds; No Tenderness; No Distention Lymphatic: No Cervical Adenopathy Extremities: No Edema Skin: No Rash or Ulcers Neurological: Alert and Oriented x 3, NL Muscle Strength and Tone Nutrition: Taking PO's Result Diagrams: 05/14/18 04:45 05/12/18 05:29 Assess/Plan/Problems-Billing Assessment: - Patient Problems (1) Syncope Comment: - Mildly orthostatic in the ED, resolved with IV fluids. - Ddimer elevated but CTA chest negative. - Question if related to AM hypoglycemia - Appreciate consultation from cardiology, concern for EKG with flip from left to right bundle branch block and elevated troponins. Echo shows a new akinesis in the inferior posterior region. Pacemaker placed 05/13/18. Plan for follow up stress test outpatient. (2) CAD (coronary artery disease) Comment: - Echo confirms a previous [place]. - Continue aspirin, lisinopril, atorvastatin and metoprolol. - Will need ischemic work up when recovered from pacemaker placement (3) Elevated hemoglobin Comment: - Appreciate consult from Dr. Adkins who ordered erythropoietin and Jak2 mutation - Will need to follow up with hematology outpatient (4) HTN (hypertension) Comment: - SBP 150s. - Continue metoprolol and lisinopril. (5) Hyperlipidemia Comment: - Continue atorvastatin (6) Type II diabetes mellitus Comment: - BG 120s - Continue AM lantus, PM long acting insulin held due concern for hypoglycemia causing syncope/seizure (7) Depression Comment: - Continue bupropion. (8) DVT prophylaxis Comment: - SQ heparin (9) Full code status Comment: Status and Disposition: Inpatient. Anticipate discharge to subacute rehab and then return to independent living with sister, physical therapy concurs with need for DANA.
[2018-05-15] MEDS: Lisinopril TAB* 10 MG PO SCH (09:13)
[2018-05-15] MEDS: Insulin LISPRO* 1 UNITS UNIT SUBCUT SCH ×3 (09:13→16:46)
[2018-05-15] MEDS: Cephalexin CAP* 500 MG PO SCH ×3 (09:17→21:54)
[2018-05-15] MEDS: buPROPion SR TAB.SR* 100 MG PO SCH ×2 (09:17→21:54)
[2018-05-15] MEDS: Docusate CAP* 100 MG PO SCH ×2 (09:17→21:54)
[2018-05-15] MEDS: amLODIPine TAB* 5 MG PO SCH (09:17)
[2018-05-15] MEDS: Metoprolol Succinate XL TAB* 50 MG PO SCH (09:17)
[2018-05-15] MEDS: CMC:Solifenacin(NF) 5 MG TAB PO SCH (09:18)
[2018-05-15] MEDS: Ammonium Lactate 12% 1 APPLIC TUBE TOPICAL SCH ×2 (14:05→21:54)
[2018-05-15] MEDS: Atorvastatin* 40 MG TAB PO SCH (16:47)
[2018-05-16] MEDS: Heparin VIAL(*) 5000 UNITS/ML VIAL (FIVE THOUSAND) SUBCUT SCH ×3 (05:19→20:53)
[2018-05-16] MEDS: Insulin LISPRO* 1 UNITS UNIT SUBCUT SCH ×3 (07:54→16:58)
[2018-05-16] MEDS: Cephalexin CAP* 500 MG PO SCH ×3 (08:59→20:53)
[2018-05-16] MEDS: Lisinopril TAB* 10 MG PO SCH (08:59)
[2018-05-16] MEDS: Metoprolol Succinate XL TAB* 50 MG PO SCH (08:59)
[2018-05-16] MEDS: amLODIPine TAB* 5 MG PO SCH (08:59)
[2018-05-16] MEDS: buPROPion SR TAB.SR* 100 MG PO SCH ×2 (08:59→20:54)
[2018-05-16] MEDS: Docusate CAP* 100 MG PO SCH ×2 (08:59→20:54)
[2018-05-16] MEDS: CMC:Solifenacin(NF) 5 MG TAB PO SCH (08:59)
[2018-05-16] MEDS: Ammonium Lactate 12% 1 APPLIC TUBE TOPICAL SCH ×2 (09:52→20:54)
[2018-05-16] MEDS: Atorvastatin* 40 MG TAB PO SCH (16:58)
--- NOTE | 2018-05-16 17:18 | PN ---
Subjective Date of Service: 05/16/18 Interval History: Patient seen and examined. Offers no complaints today. Denies chest pain, no SOB , no cough. No acute overnight events per record. Objective Active Medications: Acetaminophen (Tylenol Tab*) 650 mg PO Q4H PRN PRN Reason: FEVER/PAIN Amlodipine Besylate (Norvasc Tab*) 5 mg PO DAILY [facility] Last Admin: 05/16/18 08:59 Dose: 5 mg Ammonium Lactate (Lac-Hydrin 12 %) 1 applic TOPICAL BID [facility] Last Admin: 05/16/18 09:52 Dose: 1 applic Atorvastatin Calcium (Lipitor*) 40 mg PO 1700 [facility] Last Admin: 05/16/18 16:58 Dose: 40 mg Bisacodyl (Dulcolax Supp*) 10 mg MT DAILY PRN PRN Reason: CONSTIPATION Bupropion HCl (Wellbutrin Sr Tab*) 100 mg PO BID [facility] Last Admin: 05/16/18 08:59 Dose: 100 mg Cephalexin HCl (Keflex Cap*) 500 mg PO TID [facility] Stop: 05/18/18 14:01 Last Admin: 05/16/18 13:33 Dose: 500 mg Dextrose (D50w Syringe 50 Ml*) 12.5 gm IV PUSH .FOR FS < 60 - SS PRN PRN Reason: FS < 60 Docusate Sodium (Colace Cap*) 100 mg PO BID [facility] Last Admin: 05/16/18 08:59 Dose: 100 mg Heparin Sodium (Porcine) (Heparin Vial(*)) 5,000 units SUBCUT Q8HR [facility] Last Admin: 05/16/18 13:34 Dose: 5,000 units Insulin Human Lispro (Humalog*) 0 units SUBCUT [facility]; Protocol Last Admin: 05/16/18 16:58 Dose: 9 units Lisinopril (Prinivil Tab*) 40 mg PO DAILY [facility] Last Admin: 05/16/18 08:59 Dose: 40 mg Metoprolol Succinate (Toprol Xl Tab*) 50 mg PO DAILY [facility] Last Admin: 05/16/18 08:59 Dose: 50 mg Ondansetron HCl (Zofran Odt Tab*) 4 mg SL Q6H PRN PRN Reason: NAUSEA/VOMITING Polyethylene Glycol/Electrolytes (Miralax*) 17 gm PO DAILY PRN PRN Reason: CONSTIPATION Senna (Senokot Tab*) 2 tab PO BEDTIME PRN PRN Reason: CONSTIPATION Last Admin: 05/12/18 22:21 Dose: 2 tab Solifenacin (Vesicare(Nf)) 5 mg PO DAILY [facility] Last Admin: 05/16/18 08:59 Dose: 5 mg Vital Signs - 8 hr 05/16/18 05/16/18 11:39 15:16 Temperature 97.7 F 98.5 F Pulse Rate 61 61 Respiratory 18 18 Rate Blood Pressure 130/71 135/65 (mmHg) O2 Sat by Pulse 99 98 Oximetry Oxygen Devices in Use Now: None Appearance: alert, NAD Eyes: No Scleral Icterus, PERRLA Ears/Nose/Mouth/Throat: NL Teeth, Lips, Gums, Mucous Membranes Moist Neck: NL Appearance and Movements; NL JVP, Trachea Midline Respiratory: Symmetrical Chest Expansion and Respiratory Effort, Clear to Auscultation Cardiovascular: NL Sounds; No Murmurs; No JVD, RRR, No Edema Abdominal: NL Sounds; No Tenderness; No Distention Extremities: No Edema, No Clubbing, Cyanosis Skin: No Rash or Ulcers Neurological: Alert and Oriented x 3 Nutrition: Taking PO's Result Diagrams: 05/14/18 04:45 05/12/18 05:29 Assess/Plan/Problems-Billing Assessment: This is a 78 year old male that presented to the ED with report of syncope x2 and EKG changes, now s/p PM insertion on 05/13/18. - Patient Problems (1) Syncope Current Visit: Yes Code(s): R55 - SYNCOPE AND COLLAPSE SNOMED Code(s): 255828059 Comment: - Concern for EKG with flip from left to right bundle branch block and elevated troponins - Echo shows a new akinesis in the inferior posterior region - Pacemaker placed 05/13/18 - Plan for follow up stress test outpatient (2) CAD (coronary artery disease) Code(s): I25.10 - ATHSCL HEART DISEASE OF [place] CORONARY ARTERY W/O ANG PCTRS SNOMED Code(s): 91093276 Comment: - Echo confirms a previous [place], cardiac cath was recommended in the past which patient declined to follow up with - Continue aspirin, lisinopril, atorvastatin and metoprolol - Will need ischemic work up when recovered from pacemaker placement, should be set up as an outpatient (3) Depression Code(s): F32.9 - MAJOR DEPRESSIVE DISORDER, SINGLE EPISODE, UNSPECIFIED SNOMED Code(s): 04817728 Comment: - Continue bupropion (4) Hyperlipidemia Current Visit: No Status: Acute Code(s): E78.5 - HYPERLIPIDEMIA, UNSPECIFIED SNOMED Code(s): 62340919 Comment: - Continue atorvastatin (5) Elevated hemoglobin Code(s): D58.2 - OTHER HEMOGLOBINOPATHIES SNOMED Code(s): 538331824 Comment: - Appreciate consult from Dr. Adkins who ordered erythropoietin and Jak2 mutation which are pending - Will need to follow up with hematology outpatient for results (6) HTN (hypertension) Code(s): I10 - ESSENTIAL (PRIMARY) HYPERTENSION SNOMED Code(s): 60850883 Comment: - Stable on metoprolol and lisinopril (7) Type II diabetes mellitus Comment: - Continue AM lantus, sugars labile, continue lispro SS (8) DVT prophylaxis Current Visit: No Status: Acute Code(s): IOY0636 - SNOMED Code(s): 020419413 Comment: - SQ heparin (9) Full code status Current Visit: No Status: Acute Code(s): Z78.9 - OTHER SPECIFIED HEALTH STATUS SNOMED Code(s): 666680996 Comment: Status and Disposition: Inpatient. As per , patient has bed referrals out for STR, will DC when appropriate bed obtained.
[2018-05-17] MEDS: Heparin VIAL(*) 5000 UNITS/ML VIAL (FIVE THOUSAND) SUBCUT SCH (05:33)
[2018-05-17 07:47] VITALS: BP 119/67
[2018-05-17] MEDS: buPROPion SR TAB.SR* 100 MG PO SCH (07:55)
[2018-05-17] MEDS: Metoprolol Succinate XL TAB* 50 MG PO SCH (07:55)
[2018-05-17] MEDS: amLODIPine TAB* 5 MG PO SCH (07:55)
[2018-05-17] MEDS: Docusate CAP* 100 MG PO SCH (07:55)
[2018-05-17] MEDS: Cephalexin CAP* 500 MG PO SCH (07:55)
[2018-05-17] MEDS: Lisinopril TAB* 10 MG PO SCH (07:55)
[2018-05-17] MEDS: CMC:Solifenacin(NF) 5 MG TAB PO SCH (07:55)
[2018-05-17] MEDS: Insulin LISPRO* 1 UNITS UNIT SUBCUT SCH ×2 (07:56→12:01)
[2018-05-17] MEDS: Ammonium Lactate 12% 1 APPLIC TUBE TOPICAL SCH (09:12)
--- NOTE | 2018-05-17 11:18 | DCNOTE ---
Subjective Date of Service: 05/17/18 Interval History: Patient seen and examined. No acute overnight events. Patient remains chest pain free with no further syncope or dizziness. No complaints today. Objective Active Medications: Acetaminophen (Tylenol Tab*) 650 mg PO Q4H PRN PRN Reason: FEVER/PAIN Amlodipine Besylate (Norvasc Tab*) 5 mg PO DAILY [facility] Last Admin: 05/17/18 07:55 Dose: 5 mg Ammonium Lactate (Lac-Hydrin 12 %) 1 applic TOPICAL BID [facility] Last Admin: 05/17/18 09:12 Dose: 1 applic Atorvastatin Calcium (Lipitor*) 40 mg PO 1700 [facility] Last Admin: 05/16/18 16:58 Dose: 40 mg Bisacodyl (Dulcolax Supp*) 10 mg NE DAILY PRN PRN Reason: CONSTIPATION Bupropion HCl (Wellbutrin Sr Tab*) 100 mg PO BID [facility] Last Admin: 05/17/18 07:55 Dose: 100 mg Cephalexin HCl (Keflex Cap*) 500 mg PO TID [facility] Stop: 05/18/18 14:01 Last Admin: 05/17/18 07:55 Dose: 500 mg Dextrose (D50w Syringe 50 Ml*) 12.5 gm IV PUSH .FOR FS < 60 - SS PRN PRN Reason: FS < 60 Docusate Sodium (Colace Cap*) 100 mg PO BID [facility] Last Admin: 05/17/18 07:55 Dose: 100 mg Heparin Sodium (Porcine) (Heparin Vial(*)) 5,000 units SUBCUT Q8HR [facility] Last Admin: 05/17/18 05:33 Dose: 5,000 units Insulin Human Lispro (Humalog*) 0 units SUBCUT [facility]; Protocol Last Admin: 05/17/18 07:56 Dose: 3 units Lisinopril (Prinivil Tab*) 40 mg PO DAILY [facility] Last Admin: 05/17/18 07:55 Dose: 40 mg Metoprolol Succinate (Toprol Xl Tab*) 50 mg PO DAILY [facility] Last Admin: 05/17/18 07:55 Dose: 50 mg Ondansetron HCl (Zofran Odt Tab*) 4 mg SL Q6H PRN PRN Reason: NAUSEA/VOMITING Polyethylene Glycol/Electrolytes (Miralax*) 17 gm PO DAILY PRN PRN Reason: CONSTIPATION Senna (Senokot Tab*) 2 tab PO BEDTIME PRN PRN Reason: CONSTIPATION Last Admin: 05/12/18 22:21 Dose: 2 tab Solifenacin (Vesicare(Nf)) 5 mg PO DAILY [facility] Last Admin: 05/17/18 07:55 Dose: 5 mg Vital Signs - 8 hr 05/17/18 05/17/18 07:06 07:47 Temperature 97.3 F Pulse Rate 67 Respiratory 16 20 Rate Blood Pressure 119/67 (mmHg) O2 Sat by Pulse 97 Oximetry Oxygen Devices in Use Now: None Appearance: alert, NAD Eyes: No Scleral Icterus, PERRLA Ears/Nose/Mouth/Throat: Clear Oropharnyx, Mucous Membranes Moist Neck: NL Appearance and Movements; NL JVP, Trachea Midline Respiratory: Symmetrical Chest Expansion and Respiratory Effort, Clear to Auscultation Cardiovascular: NL Sounds; No Murmurs; No JVD, RRR Abdominal: NL Sounds; No Tenderness; No Distention Skin: No Nodules or Sclerosis Neurological: Alert and Oriented x 3, NL Sensation Nutrition: Taking PO's Result Diagrams: 05/14/18 04:45 05/12/18 05:29 Assess/Plan/Problems-Billing Assessment: This is a 78 year old male that presented to the ED with report of syncope x2 and EKG changes, now s/p PM insertion on 05/13/18. - Patient Problems (1) Syncope Current Visit: Yes Code(s): R55 - SYNCOPE AND COLLAPSE SNOMED Code(s): 562405578 Comment: - Concern for EKG with flip from left to right bundle branch block and elevated troponins - Echo shows a new akinesis in the inferior posterior region - Pacemaker placed 05/13/18 - Plan for follow up stress test outpatient (2) CAD (coronary artery disease) Code(s): I25.10 - ATHSCL HEART DISEASE OF [place] CORONARY ARTERY W/O ANG PCTRS SNOMED Code(s): 95519001 Comment: - Echo confirms a previous [place], cardiac cath was recommended in the past which patient declined to follow up with - Continue aspirin, lisinopril, atorvastatin and metoprolol - Will need ischemic work up when recovered from pacemaker placement, should be set up as an outpatient (3) Depression Code(s): F32.9 - MAJOR DEPRESSIVE DISORDER, SINGLE EPISODE, UNSPECIFIED SNOMED Code(s): 39268874 Comment: - Continue bupropion (4) Hyperlipidemia Current Visit: No Status: Acute Code(s): E78.5 - HYPERLIPIDEMIA, UNSPECIFIED SNOMED Code(s): 74458753 Comment: - Continue atorvastatin (5) Elevated hemoglobin Code(s): D58.2 - OTHER HEMOGLOBINOPATHIES SNOMED Code(s): 963801255 Comment: - Appreciate consult from Dr. Adkins who ordered erythropoietin and Jak2 mutation which are pending - Will need to follow up with hematology outpatient for results (6) HTN (hypertension) Code(s): I10 - ESSENTIAL (PRIMARY) HYPERTENSION SNOMED Code(s): 87382074 Comment: - Stable on metoprolol and lisinopril (7) Type II diabetes mellitus Comment: - Continue AM lantus, sugars labile, continue lispro SS (8) DVT prophylaxis Current Visit: No Status: Acute Code(s): ETJ7434 - SNOMED Code(s): 293221377 Comment: - SQ heparin (9) Full code status Current Visit: No Status: Acute Code(s): Z78.9 - OTHER SPECIFIED HEALTH STATUS SNOMED Code(s): 846694534 Comment: Status and Disposition: Medically optimized and clear for discharge to [facility] today.
--- NOTE | 2018-05-17 11:38 | DS ---
ADDENDUM TO DISCHARGE SUMMARY DICTATED BY GEORGETTE MENDOZA NP DATE OF ADMISSION: 05/12/2018. DATE OF DISCHARGE: 05/17/2018. ATTENDING PROVIDER: Kathi Jones MD * (DICTATED BY SHAREE CORTES NP ) DISPOSITION: Disposition has been changed. The patient is going to be discharged to [facility] for short-term rehab. This plan has been arranged by case management and the patient is in agreement with going to short-term rehab as opposed to going to home. Jannette from case management did reach out to the patient's sister to advised that the patient would be going to rehab. It was known that this would be the plan; however, the patient's sister was not aware that the patient would be transferred today, so he is being discharged on 05/17/2018 to [facility]. All the rest of his discharge planning as above remains the same, including his follow-ups and medications. SHAREE CORTES NP [id number]/CPS #: [id number]
== END 2018-05-17 13:08 | DRG 243 ==
LOC: ED 08:25 → MEDTELE 11:13 → OBSVTOIN 05-12 16:45
PROVIDERS: ADMIT Internal Medicine; ATTEND Internal Medicine
PROC: 02HK3JZ Insertion of Pacemaker Lead into Right Ventricle, Percutaneous Approach (ICD-10-PCS; 2018-05-13)
PROC: 02H63JZ Insertion of Pacemaker Lead into Right Atrium, Percutaneous Approach (ICD-10-PCS; 2018-05-13)
PROC: 0JH606Z Insertion of Pacemaker, Dual Chamber into Chest Subcutaneous Tissue and Fascia, Open Approach (ICD-10-PCS; principal; 2018-05-13 12:30)
DX: R55 Syncope and collapse (principal); I45.2 Bifascicular block; I42.9 Cardiomyopathy, unspecified; I44.0 Atrioventricular block, first degree; I95.1 Orthostatic hypotension; F41.9 Anxiety disorder, unspecified; F32.9 Major depressive disorder, single episode, unspecified; K59.00 Constipation, unspecified; R40.2142 Coma scale, eyes open, spontaneous, at arrival to emergency department; I08.0 Rheumatic disorders of both mitral and aortic valves; R40.2362 Coma scale, best motor response, obeys commands, at arrival to emergency department; R40.2252 Coma scale, best verbal response, oriented, at arrival to emergency department; E11.40 Type 2 diabetes mellitus with diabetic neuropathy, unspecified; E11.649 Type 2 diabetes mellitus with hypoglycemia without coma; R59.0 Localized enlarged lymph nodes; I25.10 Atherosclerotic heart disease of native coronary artery without angina pectoris; D45 Polycythemia vera; E11.22 Type 2 diabetes mellitus with diabetic chronic kidney disease; E66.9 Obesity, unspecified; I12.9 Hypertensive chronic kidney disease with stage 1 through stage 4 chronic kidney disease, or unspecified chronic kidney disease; N18.9 Chronic kidney disease, unspecified; E78.5 Hyperlipidemia, unspecified; Z23 Encounter for immunization; Z85.46 Personal history of malignant neoplasm of prostate; Z87.891 Personal history of nicotine dependence; Z88.8 Allergy status to other drugs, medicaments and biological substances; Z82.49 Family history of ischemic heart disease and other diseases of the circulatory system; Z68.30 Body mass index [BMI] 30.0-30.9, adult; Z79.4 Long term (current) use of insulin; Z79.82 Long term (current) use of aspirin; I25.2 Old myocardial infarction
CPT/HCPCS: 33208; 36415; 70450; 71045; 71046; 71275; 80048; 80053; 80061; 80307; 80320; 81003; 81015; 81270; 82310; 82565; 82668; 83036; 83605; 83735; 83880; 84443; 84484; 84520; 85025; 85379; 85610; 85730; 90686; 90732; 93005; 93306; 99156; 99157; 99285; A9270-GY; C1785; C1898; G0378; G0480; G8978-GP-CJ; G8979-GP-CI; G8987-GO-CL; G8988-GO-CJ; J0690; J1644; J2250; J2310; J3010; J3475; Q9967

== ENCOUNTER 2022-02-22 18:50 | Observation (INO) ==
[2022-02-22 19:51] LABS: ABS Eosinophils 0.1 10^3/ul (0-0.6); ABS Lymphocytes 0.3 10^3/ul (1.0-4.8); ABS Monocytes 0.7 10^3/ul (0-0.8); ABS Neutrophils 8.2 10^3/ul (1.5-7.7); Eosinophil % 1.1 %; Hematocrit 43 % (42-52); Hemoglobin 14.3 g/dL (14.0-18.0); Lymphocyte % 3.4 %; Mean Corpuscular HGB Conc 34 g/dL (31-36); Mean Corpuscular Hemoglobin 30 pg (27-31); Mean Corpuscular Volume 88 fL (80-94); Mean Platelet Volume 7.4 fL (7.4-10.4); Platelet Count 133 10^3/uL (150-450); Red Blood Count 4.84 10^6 /uL (4.18-5.48); Red Cell Distribution Width 14 % (10-15); White Blood Count 9.3 10^3/uL (3.5-10.8)
[2022-02-22 20:07] LABS: Activated Partial Thrombo Time 30.7 seconds (26.0-38.0); INR 1.12 (0.89-1.11)
[2022-02-22 20:27] LABS: Albumin 3.3 g/dL (3.2-5.2); Albumin/Globulin Ratio 1.5 (1-3); Globulin 2.2 g/dL (2-4); Potassium 3.3 mmol/L (3.5-5.0); Total Bilirubin 1.1 mg/dL (0.2-1.0); Total Protein 5.5 g/dL (6.4-8.9); eGFR CKD-EPI 51.6 (>60)
[2022-02-22] MEDS ORDERED: Lactated Ringers 1000 ml BAG 1,000 ML IV ONE (21:00)
[2022-02-22] MEDS ORDERED: Potassium Chlor 20 meq TAB.ER PO ONE (21:01)
[2022-02-22 21:16] LABS: High Sensitivity Troponin 1 Hr 45 pg/mL (<20)
[2022-02-23 00:33] LABS: Urine Appearance Clear; Urine Bilirubin Negative (Negative); Urine Blood Negative (Negative); Urine Color Yellow; Urine Glucose Negative (Negative); Urine Ketones Negative (Negative); Urine Nitrite Negative (Negative); Urine Protein 1+ (30 mg/dL) (Negative); Urine Urobilinogen 0.2 (Negative) (Negative); Urine pH 5.5 (5.0-9.0)
[2022-02-23] MEDS ORDERED: Dextrose 50% Syringe 50 ml 25 GM/50 ML SYRINGE IV PUSH PRN (00:35)
[2022-02-23 00:43] LABS: Urine Bacteria Absent (Absent); Urine Red Blood Cell Trace(0-2/hpf) (Absent); Urine White Blood Cell Trace(0-5/hpf) (Absent)
[2022-02-23] MEDS ORDERED: Lactated Ringers 1000 ml BAG 1,000 ML IV ONE (11:54)
[2022-02-23] MEDS ORDERED: Ondansetron 4 mg VIAL 2 MG/ML 2 ml VIAL IV PRN (11:54)
[2022-02-23] MEDS: Enoxaparin 40 MG/0.4 ML SYR SUBCUT SCH (21:22)
[2022-02-24 06:19] LABS: ABS Eosinophils 0.2 10^3/ul (0-0.6); ABS Lymphocytes 0.8 10^3/ul (1.0-4.8); ABS Monocytes 1.1 10^3/ul (0-0.8); Eosinophil % 2.6 %; Hematocrit 39 % (42-52); Hemoglobin 13.1 g/dL (14.0-18.0); Lymphocyte % 13.3 %; Mean Corpuscular HGB Conc 34 g/dL (31-36); Mean Corpuscular Hemoglobin 30 pg (27-31); Mean Corpuscular Volume 88 fL (80-94); Mean Platelet Volume 7.5 fL (7.4-10.4); Platelet Count 125 10^3/uL (150-450); Red Blood Count 4.42 10^6 /uL (4.18-5.48); Red Cell Distribution Width 14 % (10-15); White Blood Count 6.1 10^3/uL (3.5-10.8)
[2022-02-24 07:25] LABS: Blood Urea Nitrogen 21 mg/dL (6-24); CO2 Carbon Dioxide 24 mmol/L (22-32); Calcium 7.7 mg/dL (8.6-10.3); Chloride 108 mmol/L (101-111); Glucose 106 mg/dL (70-100); Magnesium 1.4 mg/dL (1.9-2.7); Sodium 141 mmol/L (135-145)
[2022-02-24] MEDS ORDERED: Magnesium Sulfate IV 3 GM in NS 0.9% 100 ml BAG 100 ML IVPB ONE ×2 (07:28→13:00)
[2022-02-24 07:49] LABS: Anion Gap 9 mmol/L (2-11)
[2022-02-24 10:43] LABS: Vitamin B12 343 pg/mL (180-914)
[2022-02-24] MEDS ORDERED: Cyanocobalamin INJ 1,000 MCG/ML VIAL 1 ML VIAL IM ONE (17:31)
[2022-02-24] MEDS: Enoxaparin 40 MG/0.4 ML SYR SUBCUT SCH (21:19)
[2022-02-24] MEDS: Mupirocin 2% OINT TUBE TOPICAL SCH (21:22)
[2022-02-25 06:32] LABS: ABS Eosinophils 0.1 10^3/ul (0-0.6); ABS Lymphocytes 0.7 10^3/ul (1.0-4.8); ABS Neutrophils 4.2 10^3/ul (1.5-7.7); Eosinophil % 2.2 %; Hematocrit 40 % (42-52); Hemoglobin 13.7 g/dL (14.0-18.0); Lymphocyte % 12.2 %; Mean Corpuscular HGB Conc 34 g/dL (31-36); Mean Corpuscular Hemoglobin 30 pg (27-31); Mean Corpuscular Volume 87 fL (80-94); Mean Platelet Volume 7.6 fL (7.4-10.4); Nucleated Red Blood Cells % 0.1; Platelet Count 142 10^3/uL (150-450); Red Blood Count 4.62 10^6 /uL (4.18-5.48); Red Cell Distribution Width 15 % (10-15); White Blood Count 6.1 10^3/uL (3.5-10.8)
[2022-02-25 06:50] LABS: Calcium 8.1 mg/dL (8.6-10.3); Magnesium 2.2 mg/dL (1.9-2.7); eGFR CKD-EPI 59.1 (>60)
[2022-02-25] MEDS: Mupirocin 2% OINT TUBE TOPICAL SCH ×2 (08:37→14:56)
[2022-02-25 11:41] VITALS: BP 109/63
[2022-02-25] MEDS ORDERED: COVID VACC, MONOVAL PFIZER-TRIS 30 MCG/0.3 ML SYR IM ONE (15:00)
== END 2022-02-25 16:00 | disposition home or self-care (01) ==
LOC: EDHOLD 18:50 → ED 18:50 → EDHOLD 02-23 08:54 → SSU 02-23 08:55
PROVIDERS: ADMIT Hospitalist; ATTEND Hospitalist